=== PATIENT | male | born 1980 | race African-American/Black ===

== ENCOUNTER 2016-08-04 02:17 | Emergency (ER) | payer OTHER ==
[~2016-08-04] VITALS: Ht 180.3 cm; Wt 79.0 kg
[~2016-08-04 02:17] MED LIST: BENZ1TAB PO; HALO5TAB PO
[2016-08-04 02:22] VITALS: BP 145/63; PULSE 71; RESP 16; TEMP 97.8; O2SAT 100
[2016-08-04 02:49] LABS: AUTOMATED NEUTROPHIL # 5.5 TH/MM3 (1.8-7.7); BASOPHIL # 0.1 TH/MM3 (0-0.2); BASOPHIL % 0.7 % (0.0-2.0); EOSINOPHIL # 0.1 TH/MM3 (0-0.4); EOSINOPHIL % 1.3 % (0.0-4.0); HEMATOCRIT 38.9 % (39.0-51.0); HEMO FLAGS DIFF FINAL; LYMPH % 25.2 % (9.0-44.0); LYMPHOCYTE # 2.2 TH/MM3 (1.0-4.8); MEAN CORPUSCULAR HEMOGLOBIN 26.9 PG (27.0-34.0); MEAN CORPUSCULAR HGB CONC 32.8 % (32.0-36.0); MONO % 9.5 % (0.0-8.0); NEUT % 63.3 % (16.0-70.0); PLATELET COUNT 160 TH/MM3 (150-450); RED BLOOD COUNT 4.74 MIL/MM3 (4.50-5.90); WHITE BLOOD COUNT 8.7 TH/MM3 (4.0-11.0)
[2016-08-04 03:00] LABS: AMPHETAMINE, URINE NEG (NEG); BARBITURATES, URINE NEG (NEG); COCAINE, URINE NEG (NEG)
[2016-08-04 03:05] LABS: ALT (GPT) 21 U/L (12-78); ANION GAP 5 MEQ/L (5-15); AST (GOT) 15 U/L (15-37); BICARBONATE 31.1 MEQ/L (21.0-32.0); BLOOD UREA NITROGEN 13 MG/DL (7-18); CHLORIDE 105 MEQ/L (98-107); GLOMERULAR FILTRATION RATE 103 ML/MIN (>89); POTASSIUM 3.8 MEQ/L (3.5-5.1); SODIUM (NA) 141 MEQ/L (136-145)
[2016-08-04 03:07] LABS: ALKALINE PHOSPHATASE 75 U/L (45-117); TOTAL BILIRUBIN ADULT 0.7 MG/DL (0.2-1.0)
--- NOTE | 2016-08-04 03:48 | PD ---
HPI Chief Complaint: Medical Clearance Time Seen by Provider: 02:29 Travel History International Travel<30 days: No Contact w/Intl Traveler<30days: No Traveled to known affect area: No History of Present Illness HPI This is a 36-year-old male who presents to the emergency department with a history of schizophrenia who reports that he was using drugs earlier in the or making him see things. He says he feels a lot better now. He has no complaints and he is not having any thoughts of hurting himself or others. He doesn't paperwork with him from [facility] dated yesterday with a prescription for Haldol and benztropine that he hasn't filled yet. He says he just wants to sleep. He has no medical complaints. PFSH Past Medical History Bipolar Disorder: Yes Anxiety: Yes Depression: Yes Chemotherapy: No Diabetes: No Diminished Hearing: No Headaches: No Heparin Induced Thrombocytopen: No Psychiatric: Yes Immunizations Current: Yes Radiation Therapy: No Schizophrenia: Yes Seizures: No Sickle Cell Disease: Yes (TRAIT) Thyroid Disease: No Influenza Vaccination: No Past Surgical History Other Surgery: No Social History Alcohol Use: Yes Tobacco Use: Yes Substance Use: Yes (CRACK) Allergies-Medications (Allergen,Severity, Reaction): Coded Allergies: No Known Allergies (Unverified , 08/04/16) Reported Meds & Prescriptions Reported Meds & Active Scripts Active Benztropine (Benztropine Mesylate) 1 Mg Tab 1 Mg PO Q12HR 10 Days Haloperidol 5 Mg Tab 7.5 Mg PO BID 10 Days Review of Systems Except as stated in HPI: all other systems reviewed are Neg Physical Exam Narrative GENERAL:Well appearing, no acute distress SKIN: Warm and dry. HEAD: Atraumatic. Normocephalic. EYES: Pupils equal and round. Conjunctival injection. ENT: Moist mucous membranes NECK: Trachea midline. CARDIOVASCULAR: Regular rate and rhythm. No murmur appreciated. RESPIRATORY: Clear to auscultation. Breath sounds equal bilaterally. GASTROINTESTINAL: Abdomen soft, non-tender, nondistended. MUSCULOSKELETAL: No obvious deformities. NEUROLOGICAL: Awake and alert. No obvious cranial nerve deficits. Moving all extremities. PSYCHIATRIC: Appropriate mood and affect; insight and judgment normal. Data Data Last Documented VS Vital Signs Date Time Temp Pulse Resp B/P Pulse Ox O2 Delivery O2 Flow Rate FiO2 08/04/16 02:22 97.8 71 16 145/63 100 Room Air Orders Complete Blood Count With Diff (08/04/16 02:29) Comprehensive Metabolic Panel (08/04/16 02:29) Alcohol (Ethanol) (08/04/16 02:29) Drug Screen, Random Urine (08/04/16 02:29) Labs Laboratory Tests Test 08/04/16 02:30 White Blood Count 8.7 TH/MM3 Red Blood Count 4.74 MIL/MM3 Hemoglobin 12.8 GM/DL Hematocrit 38.9 % Mean Corpuscular Volume 82.0 FL Mean Corpuscular Hemoglobin 26.9 PG Mean Corpuscular Hemoglobin 32.8 % Concent Red Cell Distribution Width 12.0 % Platelet Count 160 TH/MM3 Mean Platelet Volume 10.4 FL Neutrophils (%) (Auto) 63.3 % Lymphocytes (%) (Auto) 25.2 % Monocytes (%) (Auto) 9.5 % Eosinophils (%) (Auto) 1.3 % Basophils (%) (Auto) 0.7 % Neutrophils # (Auto) 5.5 TH/MM3 Lymphocytes # (Auto) 2.2 TH/MM3 Monocytes # (Auto) 0.8 TH/MM3 Eosinophils # (Auto) 0.1 TH/MM3 Basophils # (Auto) 0.1 TH/MM3 CBC Comment DIFF FINAL Differential Comment Sodium Level 141 MEQ/L Potassium Level 3.8 MEQ/L Chloride Level 105 MEQ/L Carbon Dioxide Level 31.1 MEQ/L Anion Gap 5 MEQ/L Blood Urea Nitrogen 13 MG/DL Creatinine 0.99 MG/DL Estimat Glomerular Filtration 103 ML/MIN Rate Random Glucose 92 MG/DL Calcium Level 8.8 MG/DL Total Bilirubin 0.7 MG/DL Aspartate Amino Transf 15 U/L (AST/SGOT) Alanine Aminotransferase 21 U/L (ALT/SGPT) Alkaline Phosphatase 75 U/L Total Protein 7.7 GM/DL Albumin 3.8 GM/DL Urine Opiates Screen NEG Urine Barbiturates Screen NEG Urine Amphetamines Screen NEG Urine Benzodiazepines Screen NEG Urine Cocaine Screen NEG Urine Cannabinoids Screen NEG Ethyl Alcohol Level LESS THAN 3 MG/DL MDM Medical Decision Making Medical Screen Exam Complete: Yes Emergency Medical Condition: Yes Differential Diagnosis Schizophrenia, psychosis, substance intoxication Narrative Course This is a 36-year-old male who presents to the emergency department with a history of schizophrenia. He reports that he use or drug earlier and it made him feel bad. Currently he feels better. He has no thoughts of hurting himself or others. I don't think he meets Nelson act criteria and I can't hold him against his will. Patient will be discharged home in the morning. Diagnosis Primary Impression: Substance abuse Patient Instructions: General Instructions Additional Instructions: Follow up with Luis Carlos Lundberg in regards to psychiatric or substance related issues at: [address] [place] [address] Med/Other Pt SpecificInfo: No Change to Meds Disposition: 01 DISCHARGE HOME Condition: Stable Quyen York MD Aug 04, 2016 03:48
== END 2016-08-04 06:23 | disposition home or self-care (01) ==
LOC: NEPE 02:17
DX: F14.20 Cocaine dependence, uncomplicated (principal); F20.9 Schizophrenia, unspecified; F41.8 Other specified anxiety disorders; F31.9 Bipolar disorder, unspecified
CPT/HCPCS: 80053; 80307; 80320; 85025; 99284

== ENCOUNTER 2017-01-19 08:01 | Inpatient (IN) | payer OTHER ==
[2017-01-19 08:06] VITALS: BP 136/92; PULSE 93; RESP 16; TEMP 98.4; O2SAT 96
--- NOTE | 2017-01-19 08:19 | PD ---
HPI Chief Complaint: Psychiatric Symptoms Time Seen by Provider: 08:14 Travel History International Travel<30 days: No Contact w/Intl Traveler<30days: No Traveled to known affect area: No History of Present Illness HPI 36yo M with PMH of paranoid schizophrenia and polysubstance abuse presents to the ED under Nelson Act because he was observed running down the middle of [facility]. He stated he was being chased by unknown subjects. He states he has not taken his haldol medication. Placed under Nelson Act due to his erratic behavior. Pt denies any chest pain, sob, n/v, abdominal pain, focal weakness or numbness. Pt admits to drug use today. Denies any suicidal or homicidal ideation. Pt has been here multiple times for this and was admitted to inpatient psych in 2016. PFSH Past Medical History Bipolar Disorder: Yes Anxiety: Yes Depression: Yes Chemotherapy: No Diabetes: No Diminished Hearing: No Headaches: No Heparin Induced Thrombocytopen: No Psychiatric: Yes Immunizations Current: Yes Radiation Therapy: No Schizophrenia: Yes Seizures: No Sickle Cell Disease: Yes (TRAIT) Thyroid Disease: No Past Surgical History Other Surgery: No Social History Alcohol Use: Yes Tobacco Use: Yes Substance Use: Yes (CRACK) Allergies-Medications (Allergen,Severity, Reaction): Coded Allergies: No Known Allergies (Unverified , 08/04/16) Reported Meds & Prescriptions Reported Meds & Active Scripts Active No Active Prescriptions or Reported Medications Review of Systems Except as stated in HPI: all other systems reviewed are Neg Physical Exam Narrative GENERAL: 36yo M not in distress. SKIN: Focused skin assessment warm/dry. HEAD: Atraumatic. Normocephalic. EYES: Pupils equal and round and reactive at 5mm bilaterally. No scleral icterus. No injection or drainage. ENT: No nasal bleeding or discharge. Mucous membranes pink and moist. NECK: Trachea midline. No JVD. CARDIOVASCULAR: Regular rate and rhythm. No murmur appreciated. RESPIRATORY: No accessory muscle use. Clear to auscultation. Breath sounds equal bilaterally. GASTROINTESTINAL: Abdomen soft, non-tender, nondistended. No rebound tenderness or guarding. MUSCULOSKELETAL: No obvious deformities. No clubbing. No cyanosis. No edema. NEUROLOGICAL: Awake and alert. No obvious cranial nerve deficits. Motor grossly within normal limits. Normal speech. PSYCHIATRIC: Inappropriate mood and affect; poor insight and judgment. Data Data Last Documented VS Vital Signs Date Time Temp Pulse Resp B/P Pulse Ox O2 Delivery O2 Flow Rate FiO2 01/20/17 10:00 53 18 114/75 Room Air 01/19/17 12:43 99 01/19/17 08:06 98.4 Orders Complete Blood Count With Diff (01/19/17 08:07) Comprehensive Metabolic Panel (01/19/17 08:07) Psych Screen (01/19/17 08:07) Drug Screen, Random Urine (01/19/17 08:07) Alcohol (Ethanol) (01/19/17 08:07) Sodium Chlor 0.9% 1000 Ml Inj (Ns 1000 M (01/19/17 10:15) Potassium Chloride (Kcl) (01/19/17 10:15) Diet Regular Basic (01/19/17 Lunch) Diet Regular Basic (01/19/17 Dinner) Haloperidol Inj (Haldol Inj) (01/19/17 18:00) Diphenhydramine Inj (Benadryl Inj) (01/19/17 18:00) Diet Regular Basic (01/20/17 Breakfast) Diet Regular Basic (01/20/17 Lunch) Labs Laboratory Tests Test 01/19/17 01/19/17 08:25 12:40 White Blood Count 11.3 TH/MM3 Red Blood Count 4.33 MIL/MM3 Hemoglobin 11.9 GM/DL Hematocrit 35.6 % Mean Corpuscular Volume 82.2 FL Mean Corpuscular Hemoglobin 27.4 PG Mean Corpuscular Hemoglobin 33.4 % Concent Red Cell Distribution Width 12.2 % Platelet Count 157 TH/MM3 Mean Platelet Volume 11.4 FL Neutrophils (%) (Auto) 81.0 % Lymphocytes (%) (Auto) 10.9 % Monocytes (%) (Auto) 7.5 % Eosinophils (%) (Auto) 0.4 % Basophils (%) (Auto) 0.2 % Neutrophils # (Auto) 9.2 TH/MM3 Lymphocytes # (Auto) 1.2 TH/MM3 Monocytes # (Auto) 0.9 TH/MM3 Eosinophils # (Auto) 0.0 TH/MM3 Basophils # (Auto) 0.0 TH/MM3 CBC Comment DIFF FINAL Differential Comment Sodium Level 137 MEQ/L Potassium Level 3.2 MEQ/L Chloride Level 105 MEQ/L Carbon Dioxide Level 22.9 MEQ/L Anion Gap 9 MEQ/L Blood Urea Nitrogen 20 MG/DL Creatinine 1.51 MG/DL Estimat Glomerular Filtration 63 ML/MIN Rate Random Glucose 100 MG/DL Calcium Level 9.3 MG/DL Total Bilirubin 2.1 MG/DL Aspartate Amino Transf 48 U/L (AST/SGOT) Alanine Aminotransferase 38 U/L (ALT/SGPT) Alkaline Phosphatase 84 U/L Total Protein 8.4 GM/DL Albumin 4.3 GM/DL Ethyl Alcohol Level 4 MG/DL Urine Opiates Screen NEG Urine Barbiturates Screen NEG Urine Amphetamines Screen NEG Urine Benzodiazepines Screen NEG Urine Cocaine Screen POS Urine Cannabinoids Screen NEG MDM Medical Decision Making Medical Screen Exam Complete: Yes Emergency Medical Condition: Yes Differential Diagnosis Polysubstance abuse vs. paranoid schizophrenia vs. psychosis Narrative Course 36yo M with history of polysubstance abuse and paranoid schizophrenia brought in for bizarre behavior. Pt does appear bizarre and admits to drug use. Labs reviewed, H/H low at 11.9/35.6 but around baseline. BUN/creatinine at 20/1.51, mildly increased from baseline. Pt tolerating PO and given water to hydrate. Bilirubin is elevated at 2.1, but pt has no abdominal pain. K: 3.2, will replaced orally. Blood alcohol 4. Urine drug screen is pending. Pt is medically clear for psych evaluation. Pt has been masturbating in the ED and instructed to stop. Awaiting psych evaluation. Diagnosis Primary Impression: Paranoid schizophrenia Scripts No Active Prescriptions or Reported Meds Lorelei Kerr DO Jan 19, 2017 08:19
[2017-01-19 08:47] LABS: AUTOMATED NEUTROPHIL # 9.2 TH/MM3 (1.8-7.7); BASOPHIL % 0.2 % (0.0-2.0); EOSINOPHIL % 0.4 % (0.0-4.0); HEMATOCRIT 35.6 % (39.0-51.0); HEMO FLAGS DIFF FINAL; LYMPH % 10.9 % (9.0-44.0); LYMPHOCYTE # 1.2 TH/MM3 (1.0-4.8); MEAN CELL VOLUME 82.2 FL (80.0-100.0); MEAN CORPUSCULAR HEMOGLOBIN 27.4 PG (27.0-34.0); MEAN CORPUSCULAR HGB CONC 33.4 % (32.0-36.0); MONO % 7.5 % (0.0-8.0); PLATELET COUNT 157 TH/MM3 (150-450); RED BLOOD COUNT 4.33 MIL/MM3 (4.50-5.90); RED CELL DISTRIBUTION WIDTH 12.2 % (11.6-17.2); WHITE BLOOD COUNT 11.3 TH/MM3 (4.0-11.0)
[2017-01-19 09:03] LABS: ALT (GPT) 38 U/L (12-78); ANION GAP 9 MEQ/L (5-15); AST (GOT) 48 U/L (15-37); BICARBONATE 22.9 MEQ/L (21.0-32.0); BLOOD UREA NITROGEN 20 MG/DL (7-18); CHLORIDE 105 MEQ/L (98-107); GLOMERULAR FILTRATION RATE 63 ML/MIN (>89); POTASSIUM 3.2 MEQ/L (3.5-5.1); SODIUM (NA) 137 MEQ/L (136-145)
[2017-01-19 09:06] LABS: ALKALINE PHOSPHATASE 84 U/L (45-117); TOTAL BILIRUBIN ADULT 2.1 MG/DL (0.2-1.0)
[2017-01-19] MEDS ORDERED: POTASSIUM CHLORIDE 20 MEQ CONTROLLED RELEASE TAB PO ONE (10:15)
[2017-01-19] MEDS ORDERED: SODIUM CHLOR 0.9% 1000 ML INJ 1,000 ML IV ONE (10:15)
[2017-01-19 12:43] VITALS: BP 124/74; PULSE 61; RESP 18; O2SAT 99
[2017-01-19 13:08] LABS: AMPHETAMINE, URINE NEG (NEG); BARBITURATES, URINE NEG (NEG); COCAINE, URINE POS (NEG)
[2017-01-19] MEDS ORDERED: HALOPERIDOL LACTATE 5 MG/ML AMP IM ONE (18:00)
[2017-01-19] MEDS ORDERED: diphenhydrAMINE HCL 50 MG/ML VIAL IM PRN (18:00)
[2017-01-20 02:21] VITALS: RESP 18
[2017-01-20 06:23] VITALS: RESP 18
[2017-01-20 10:00] VITALS: BP 114/75; PULSE 53; RESP 18
[2017-01-20] MEDS ORDERED: LORazepam 1 MG TAB PO PRN (11:45)
[2017-01-20] MEDS ORDERED: MAGNESIUM HYDROXIDE SUSP 30 ML CUP PO PRN (11:45)
[2017-01-20] MEDS ORDERED: ALUMINUM/MAGNESIUM/SIMETH 30 ML CUP PO PRN (11:45)
[2017-01-20] MEDS ORDERED: diphenhydrAMINE HCL 50 MG CAP PO PRN (11:45)
[2017-01-20] MEDS ORDERED: ACETAMINOPHEN 325 MG TAB PO PRN (11:45)
[2017-01-20] MEDS ORDERED: LORazepam 2 MG/ML VIAL IM PRN (11:45)
[2017-01-20 11:49] VITALS: BP 114/75; PULSE 53; RESP 18
--- NOTE | 2017-01-20 12:06 | HHI.HP ---
Provisional Diagnosis Admission Date [place] I. Schizophrenic chronic paranoid type f 20.0, cocaine abuse F 14.10 Certification of Person's Competence To Provide Express and Informed Consent I have personally examined Varinder Angulo , a person being served at [facility] on, Jan 20, 2017 11:50. Express and informed consent means consent voluntarily given in writing, by a competent person, after sufficient explanation and disclosure of the subject matter involved to enable the person to make a knowing and willful decision without any element of force, fraud, deceit, duress, or other form of constraint or coercion. This person is 18 years of age or older, is not now known to be incompetent to consent to treatment with a guardian advocate, and does not have a health care surrogate or proxy currently making medical treatment decisions. I have found this person to be one of the following: [] Competent to provide express and informed consent, as defined above, for voluntary admission to this facility and is competent to provide express and informed consent for treatment. He/she has the consistent capacity to make well reasoned, willful, and knowing decisions concerning his or her medical or mental health treatment. The person fully and consistently understands the purpose of the admission for examination/placement and is fully capable of personally exercising all rights assured [place] [] Incompetent to provide express and informed consent to voluntary admission, and this is incompetent to provide express and informed consent to treatment. The person must be transferred to involuntary status and a petition for a guardian advocate filed with the Circuit Court. [xxx] Refusing to provide express and informed consent to voluntary admission but is competent to provide express and informed consent for treatment. The person must be discharged or transferred to involuntary status. Form shall be completed within 24 hours of a person's arrival at the receiving facility and filed in the clinical record of each person: 1. Admitted on a voluntary basis 2. Permitted to provide express and informed consent to his/her own treatment 3. Allowed to transfer from involuntary to voluntary status 4. Prior to permitting a person to consent to his or her own treatment after having been previously found incompetent to consent to treatment. History of Present Illness Capacity: Lacks Capacity (patient lacks capacity to sign for his admission, patient has capacity sign for medication) HPI Patient is a 36-year-old Afro-Vietnamese male who comes here under Nelson act by the [place] [employer] dated 01/19/17 at 7:45 AM that document reviewed essentially states that Kev was observed running down the middle of [facility]. Upon contact he stated he was being chased by unknown subjects. No persons were chasing/following him. Further investigation revealed that Kev suffers from schizophrenia and bipolar disorder. Kev advised has not taken his "alcohol" medication. Was placed under Nelson act due to his erratic behavior. Patient seen screened in the ED urine toxicology positive for cocaine. Of interest patient is well known to us from multiple prior contacts. Was noted to have cocaine in his urine toxicology drawn in 2014. At the present time patient laying quietly in his room on J pod nurse Thang present throughout session. Patient initially was somewhat resistant to speaking with me. It appears she did recognize me from prior contact. He was guarded irritable and somewhat paranoid. Though he did acknowledge running down the street beside his getting away from "flies". It appears to be a visual component to this though he is vague about any auditory component to this. He denies using cocaine. It appears she does not remember giving a urine specimen yesterday. Also states he just got out of custodial than the past few weeks for some type of drug related charges. He acknowledges that when he does not take his medication his head gets kind of fuzzy and confused. He does denies suicidality at the present time is somewhat confusing and labile when discussing this. In any event at the present time patient does meet criteria for involuntary psychiatric hospitalization under the Nelson act. I'll do first opinion request second opinion. I feel he does have capacity sign for medications at this time. Patient will be admitted 2700 unit we'll restart his Haldol at 10 mg twice a day we'll allow when necessary Ativan at the present time also. Review of the EMR shows patient in the past had been on Haldol Decanoate will consider that this one to 2 days Review of Systems Constitutional: DENIES: Diaphoretic episodes, Fatigue, Fever, Weight gain, Weight loss, Chills, Dizziness, Change in appetite, Night Sweats Endocrine: DENIES: Heat/cold intolerance, Polydipsia, Polyuria, Polyphagia Eyes: DENIES: Blurred vision, Diplopia, Eye inflammation, Eye pain, Vision loss , Photosensitivity, Double Vision Ears, nose, mouth, throat: DENIES: Tinnitus, Hearing loss, Vertigo, Nasal discharge, Oral lesions, Throat pain, Hoarseness, Ear Pain, Running Nose, Epistaxis, Sinus Pain, Toothache, Odynophagia Respiratory: DENIES: Apneas, Cough, Snoring, Wheezing, Hemoptysis, Sputum production, Shortness of breath Gastrointestinal: DENIES: Abdominal pain, Black stools, Bloody stools, Constipation, Diarrhea, Nausea, Vomiting, Difficulty Swallowing, Anorexia Genitourinary: DENIES: Sexual dysfunction, Urinary frequency, Urinary incontinence, Urgency, Hematuria, Dysuria, Nocturia, Penile Discharge, Testicular Pain, Testicular Swelling Musculoskeletal: DENIES: Joint pain, Muscle aches, Stiffness, Joint Swelling, Back pain, Neck pain Integumentary: DENIES: Abnormal pigmentation, Nail changes, Pruritus, Rash Hematologic/lymphatic: DENIES: Bruising, Lymphadenopathy Immunologic/allergic: DENIES: Eczema, Urticaria Neurologic: DENIES: Abnormal gait, Headache, Localized weakness, Paresthesias, Seizures, Speech Problems, Tremor, Poor Balance Psychiatric: COMPLAINS OF: Hallucinations, Agitation (irritable labile) Past Psych History Psychological trauma history Unable to ascertain due to patient psychosis Violence risk - others (6 mos) Moderate Violence risk - self (6 mos) Low to moderate Substance Abuse History Drugs/Alcohol past 12 months Urine toxicology positive for cocaine Past Family Social History Coded Allergies: No Known Allergies (Unverified , 08/04/16) Past Medical History Medically cleared ED Discontinued Scripts Haloperidol 5 Mg Tab7.5 Mg PO BID 10 Days Ref 2 Prov:Braxton Isaacs MD 05/04/16 Current Medications Medications (Trade) Dose Ordered Sig/Deanna Route Start Time Stop Time Status Last Admin (Benadryl Inj) 50 mg Q6H PRN IM 01/19/17 18:00 01/19/17 18:20 Family History Patient has history mental illness and family of origin Social History Patient recently incarcerated has been staying immotile may or may not be homeless at this time Patient's Strengths (min. 2) Patient verbal able access healthcare Physical Exam Patient medically cleared in ED prescription quietly on his bed in J pod is in no acute distress. Neck is supple, he is in no respiratory distress. No complaints of abdominal pain. He moves all 4 extremities without difficulty. No abnormal motor movements noted. Vital Signs Vital Signs Date Time Temp Pulse Resp B/P Pulse Ox O2 Delivery O2 Flow Rate FiO2 01/20/17 11:49 53 18 114/75 Room Air 01/19/17 12:43 99 01/19/17 08:06 98.4 Mental Status Examination Alert oriented though mildly confusing Afro-Vietnamese male laying on his belly Renetta Louis in J pod, he is guarded irritable and labile with fair eye contact Appearance Somewhat disheveled Speech: Pressured, Rapid, Tangential Orientation: Person, Place Memory: Impaired (describe) Thought Process: Loose Association Thought Content: Paranoid Language Poor Fund of Knowledge Poor Hallucination Type: Auditory (vague), Visual (vague) Attention and Concentration: Other (poor) Suicidal Ideation: No (deny) Previous Suicide Attempts: No Homicidal Ideation: No (denies) Previous Homicide Attempts: No Insight: Poor Judgment: Poor Affect: Other (slight increase range and intensity) Mood: Euthymic, Angry, Oppositional, Irritable Motor Activity: Normal gait Assessment & Plan Problem List: (1) Cocaine abuse ICD Code: F14.10 (2) Paranoid type schizophrenia, chronic state ICD Code: F20.0 Assessment & Plan Estimated LOS: 5-7 days patient meets criteria for involuntary psychiatric hospitalization on the Nelson act. I'll do first opinion request second opinion. Distally feel patient has capacity Saphris medications. We will restart him on Haldol 10 mg twice a day anticipation of Haldol Decanoate within 1-2 days Discharge Planning To be determined Request HC Surrog/Guard Advoc?: No Mario Amaya MD Jan 20, 2017 12:05
[2017-01-20 13:50] VITALS: BP 130/61; PULSE 74; RESP 16; TEMP 98.4; O2SAT 100
[2017-01-20] MEDS: HALOPERIDOL 10 MG TAB PO SCH (22:25)
[2017-01-21 05:38] VITALS: BP 93/52; PULSE 71; RESP 18; TEMP 97.9; O2SAT 97
[2017-01-21] MEDS: HALOPERIDOL 10 MG TAB PO SCH ×2 (08:19→20:36)
--- NOTE | 2017-01-21 12:08 | PD.PSY.CON ---
Provisional Diagnosis Admission Date Jan 20, 2017 at 11:50 [place] I. Schizophrenic chronic paranoid type f 20.0, cocaine abuse F 14.10 History of Present Illness Service Psychiatry Consult Requested By Psychiatry Reason for Consult 2nd Primary Care Physician No Primary Care Physician HPI Pt seen and discussed with staff. Chart reviewed. He is a 36YOAAM who was admitted to [facility] under a BA taken out by [place] [employer] alleging that pt was observed running down the middle of [facility] and told the police that he was being pursued by unknown subjects. Pt was BA due to erractic risky behavior. He has a hx of schizophrenia and is well known to service from prior contacts. Staff report that pt remains significantly internal stimulated and is easily frustrated. He has some disorganized behavior and had to be redirected by RN to keep self appropriately covered. He is suspicious and paranoid of medications but is compliant and denies side effects. He states during interview that he stopped taking psychiatric medications after release from care home and has been increasingly "confused". He denies SI/HI. He is guarded during interview and appears to be actively responding to internal stimuli. He has been isolative to his room for most of the day. Past Family Social History Coded Allergies: No Known Allergies (Unverified , 08/04/16) Discontinued Scripts Haloperidol 5 Mg Tab7.5 Mg PO BID 10 Days Ref 2 Prov:Braxton Isaacs MD 05/04/16 Current Medications Medications (Trade) Dose Ordered Sig/Deanna Route Start Time Stop Time Status Last Admin (Benadryl Inj) 50 mg Q6H PRN IM 01/19/17 18:00 01/19/17 18:20 (Ativan) 1 mg Q6H PRN PO 01/20/17 11:45 01/20/17 15:36 (Ativan Inj) 1 mg Q6H PRN IM 01/20/17 11:45 (Benadryl) 50 mg Q6H PRN PO 01/20/17 11:45 (Tylenol) 650 mg Q4H PRN PO 01/20/17 11:45 (Milk Of Magnesia Liq) 30 ml DAILY PRN PO 01/20/17 11:45 (Mag-Al Plus Susp Liq) 30 ml Q6H PRN PO 01/20/17 11:45 (Haldol) 10 mg BID PO 01/20/17 21:00 01/21/17 08:19 Family History unknown Social History Disabled. Living with a friend. Patient's Strengths (min. 2) Patient verbal able access healthcare Physical Exam see EMR no acute distress Vital Signs Vital Signs Date Time Temp Pulse Resp B/P Pulse Ox O2 Delivery O2 Flow Rate FiO2 01/21/17 05:38 97.9 71 18 93/52 97 01/20/17 11:49 Room Air Mental Status Examination Speech: Tangential Orientation: Person, Place Memory: Impaired (describe) Thought Process: Loose Association Thought Content: Paranoid Hallucination Type: Auditory Attention and Concentration: Other (poor) Suicidal Ideation: No Previous Suicide Attempts: No Homicidal Ideation: No Previous Homicide Attempts: No Insight: Poor Judgment: Poor Affect if Inappropriate: Flat Mood: Irritable Motor Activity: Normal gait Assessment & Plan Problem List: (1) Paranoid type schizophrenia, chronic state ICD Code: F20.0 (2) Cocaine abuse ICD Code: F14.10 Assessment & Plan I agree that pt meets BA criteria. Continue current tx plan. 2nd opinion paperwork completed. Estimated LOS: days Request HC Surrog/Guard Advoc?: Irina Villanueva MD Jan 21, 2017 12:08 Assessment & Plan Problem List: (1) Cocaine abuse ICD Code: F14.10 (2) Paranoid type schizophrenia, chronic state ICD Code: F20.0 Assessment & Plan Estimated LOS: days Request HC Surrog/Guard Advoc?: Irina Villanueva MD Jan 21, 2017 12:08
[2017-01-21 18:17] VITALS: BP 116/62; PULSE 70; RESP 18; TEMP 97.5; O2SAT 100
[2017-01-22 06:11] VITALS: BP 142/79; PULSE 68; RESP 18; TEMP 97.2; O2SAT 98
[2017-01-22] MEDS: HALOPERIDOL 10 MG TAB PO SCH ×2 (08:54→20:56)
--- NOTE | 2017-01-22 11:29 | PD.TTN ---
Present for Treatment Team Treatment Team Staff: Provider (Dr. Amaya), [facility] Therapist [facility] Other Clinician (rec. Laina therapy) Patient Problems 1. Discharge planning 2. Medication compliance 3. Knowledge deficit 4. Lack of coping skills Progress Toward Goals Provider Input: Dr. Amaya requested an update regarding this patient's progress, medication compliance, mental status, and plan for discharge. This is a new patient and Counselor has yet to do an assessment. Psych Therapist Input: Patient is a new patient and counselor will do initial assessment today. [facility] Jan 22, 2017 11:29
--- NOTE | 2017-01-22 11:50 | HHI.PYPN ---
Subjective Remarks Patient seen in day room with nurse Tho and medical student Maddie, chart review, patient compliant medications. Patient continues auditory hallucinations though there is a slight decrease in the intensity and the threatening threatening nature of them. He still shows little insight into this and also into the role that cocaine plays in his mental illness. He has had no difficulty with the oral Haldol. We will now order Haldol Decanoate 100 mg IM every 28 days Review of Systems Except as stated in HPI: all other systems reviewed are Neg Objective Alert: Yes [place]: Person, Place, Date Mood: Anxious (slightly), Calm Affect: Euthymic, Labile (slightly) Memory Intact: Comment (poor) Hallucinations: Auditory Delusions: Yes Delusion Type: Paranoid (somewhat decreased) Suicidal: Ideation (denies) Homicidal: Ideation (denies) Insight/Judgment Poor Vitals/IOs Vital Signs Date Time Temp Pulse Resp B/P Pulse Ox O2 Delivery O2 Flow Rate FiO2 01/22/17 06:11 97.2 68 18 142/79 98 01/20/17 11:49 Room Air Assessment & Plan Problem List: (1) Paranoid type schizophrenia, chronic state ICD Code: F20.0 (2) Cocaine abuse ICD Code: F14.10 Assessment & Plan Estimated LOS: days patient continue psychotic delusional, but somewhat softer. He is been no behavioral problems. For now we'll continue the oral Haldol but also add Haldol decanoate 100 mg IM every 28 days starting tomorrow Justification for Cont. Inpt. This time patient will decompensate if placed in a lower level of care Discharge Planning To be determined Request HC Surrog/Guard Advoc?: No Mario Amaya MD Jan 22, 2017 11:50
[2017-01-22 18:07] VITALS: BP 98/52; PULSE 63; RESP 18; TEMP 97.4; O2SAT 99
[2017-01-23 06:08] VITALS: BP 117/67; PULSE 72; RESP 18; TEMP 97.4; O2SAT 100
[2017-01-23] MEDS ORDERED: HALOPERIDOL DECANOATE 50 MG/ML VIAL IM SCH (08:00)
[2017-01-23] MEDS: HALOPERIDOL 10 MG TAB PO SCH ×2 (08:48→20:48)
--- NOTE | 2017-01-23 12:49 | HHI.PYPN ---
Subjective Remarks Patient seen today in his room with medical student Es, chart review, patient compliant medication. Patient did receive his Haldol Decanoate injection of this a.m. without problems. Patient continues somewhat irritable continues to verify vague auditory hallucinations. Is been no significant behavioral problems. For now continue treatment Review of Systems Except as stated in HPI: all other systems reviewed are Neg Objective Alert: Yes [place]: Person, Place, Date Mood: Anxious (slightly), Calm Affect: Euthymic, Labile (slightly) Memory Intact: Comment (poor) Hallucinations: Auditory Delusions: Yes Delusion Type: Paranoid (somewhat decreased) Suicidal: Ideation (denies) Homicidal: Ideation (denies) Insight/Judgment Very poor Vitals/IOs Vital Signs Date Time Temp Pulse Resp B/P Pulse Ox O2 Delivery O2 Flow Rate FiO2 01/23/17 06:08 97.4 72 18 117/67 100 01/20/17 11:49 Room Air Assessment & Plan Problem List: (1) Paranoid type schizophrenia, chronic state ICD Code: F20.0 (2) Cocaine abuse ICD Code: F14.10 Assessment & Plan Estimated LOS: days patient continue psychotic auditory hallucinations, with this time his behavior is no problem Justification for Cont. Inpt. At this time patient decompensate the placed a lower level of care Discharge Planning To be determined Request HC Surrog/Guard Advoc?: No Mario Amaya MD Jan 23, 2017 12:49
[2017-01-23 18:07] VITALS: BP 99/67; PULSE 77; RESP 19; TEMP 98.2; O2SAT 99
[2017-01-24 06:05] VITALS: BP 133/89; PULSE 68; RESP 18; TEMP 97.6; O2SAT 98
[2017-01-24] MEDS: HALOPERIDOL 10 MG TAB PO SCH ×2 (09:42→21:12)
--- NOTE | 2017-01-24 15:18 | HHI.PYPN ---
Subjective Remarks Patient seen in his room with nurse Mayte, chart review, patient compliant medications. While patient is to isolate somewhat he is calmer more redirectable showing no significant behavioral problems. He now denies voices. Distally feel patient is able to sign voluntary will lift Nelson act allow her sign voluntary. For now continue treatment Review of Systems Except as stated in HPI: all other systems reviewed are Neg Objective Alert: Yes [place]: Person, Place, Date Mood: Anxious (slightly), Calm Affect: Euthymic, Labile (slightly) Memory Intact: Comment (poor) Hallucinations: Auditory Delusions: Yes Delusion Type: Paranoid (somewhat decreased) Suicidal: Ideation (denies) Homicidal: Ideation (denies) Insight/Judgment Very poor Vitals/IOs Vital Signs Date Time Temp Pulse Resp B/P Pulse Ox O2 Delivery O2 Flow Rate FiO2 01/24/17 06:05 97.6 68 18 133/89 98 01/20/17 11:49 Room Air Assessment & Plan Problem List: (1) Paranoid type schizophrenia, chronic state ICD Code: F20.0 (2) Cocaine abuse ICD Code: F14.10 Assessment & Plan Estimated LOS: days patient continue psychotic but improving, compliant medications, from I'll continue treatment Justification for Cont. Inpt. At this time patient will decompensate if placed in a lower level of care Discharge Planning To be determined Request HC Surrog/Guard Advoc?: No Mario Amaya MD Jan 24, 2017 15:18
[2017-01-24 17:35] VITALS: BP 103/64; PULSE 84; RESP 19; TEMP 98.1; O2SAT 99
[2017-01-25 05:26] VITALS: BP 111/70; PULSE 84; RESP 18; TEMP 97.6; O2SAT 95
[2017-01-25] MEDS: HALOPERIDOL 10 MG TAB PO SCH ×2 (07:52→12:00)
--- NOTE | 2017-01-25 14:43 | HHI.PYPN ---
Subjective Remarks Patient seen in the day room with medical student Maddie and nurse Michelle. Patient alert oriented calm cooperative smiling same the voices continue to disappear. He now denies suicidality. He continues somewhat vague about where he'll be living when ago. For now continue treatment Review of Systems Except as stated in HPI: all other systems reviewed are Neg Objective Alert: Yes [place]: Person, Place, Date Mood: Anxious (slightly), Calm Affect: Euthymic, Labile (slightly) Memory Intact: Comment (poor) Hallucinations: Auditory Delusions: Yes Delusion Type: Paranoid (somewhat decreased) Suicidal: Ideation (denies) Homicidal: Ideation (denies) Insight/Judgment poor Vitals/IOs Vital Signs Date Time Temp Pulse Resp B/P Pulse Ox O2 Delivery O2 Flow Rate FiO2 01/25/17 05:26 97.6 84 18 111/70 95 Assessment & Plan Problem List: (1) Paranoid type schizophrenia, chronic state ICD Code: F20.0 (2) Cocaine abuse ICD Code: F14.10 Assessment & Plan Estimated LOS: days patient continues psychotic but it is lifting. For now continue treatment Justification for Cont. Inpt. At this time patient would decompensate the placed in a lower level of care Discharge Planning To be determined Request HC Surrog/Guard Advoc?: No Mario Amaya MD Jan 25, 2017 14:43
[2017-01-25 17:39] VITALS: BP 134/76; PULSE 86; RESP 19; TEMP 97.8
[2017-01-26 05:56] VITALS: BP 93/50; PULSE 70; RESP 18; TEMP 97.5; O2SAT 98
[2017-01-26] MEDS: HALOPERIDOL 10 MG TAB PO SCH ×2 (08:21→20:42)
--- NOTE | 2017-01-26 14:33 | HHI.PYPN ---
Subjective Remarks Patient seen in his room with nurse Cristina, chart review, patient compliant medications. No stating of the voices are just about gone calmly continues denies suicidality at this time. For now continue treatment no change Review of Systems Except as stated in HPI: all other systems reviewed are Neg Objective Alert: Yes [place]: Person, Place, Date Mood: Anxious (slightly), Calm Affect: Euthymic, Labile (slightly) Memory Intact: Comment (poor) Hallucinations: Auditory Delusions: Yes Delusion Type: Paranoid (somewhat decreased) Suicidal: Ideation (denies) Homicidal: Ideation (denies) Insight/Judgment Poor Vitals/IOs Vital Signs Date Time Temp Pulse Resp B/P Pulse Ox O2 Delivery O2 Flow Rate FiO2 01/26/17 05:56 97.5 70 18 93/50 98 Assessment & Plan Problem List: (1) Paranoid type schizophrenia, chronic state ICD Code: F20.0 (2) Cocaine abuse ICD Code: F14.10 Assessment & Plan Estimated LOS: days patient continues psychotic though he is improving, compliant medications, no behavioral issues. For now continue treatment Justification for Cont. Inpt. At this time patient will decompensate if placed in a lower level of care Discharge Planning To be determined Request HC Surrog/Guard Advoc?: No Mario Amaya MD Jan 26, 2017 14:33
[2017-01-26 18:15] VITALS: BP 140/80; PULSE 85; RESP 18; TEMP 97.4; O2SAT 99
[2017-01-26] MEDS ORDERED: diphenhydrAMINE HCL 50 MG/ML VIAL IM ONE (18:15)
[2017-01-27 05:42] VITALS: BP 101/54; PULSE 69; RESP 18; TEMP 98; O2SAT 98
[2017-01-27] MEDS: HALOPERIDOL 10 MG TAB PO SCH (08:15)
--- NOTE | 2017-01-27 17:14 | HHI.PYPN ---
Subjective Remarks Patient was seen and case discussed with nursing. Patient had akathisia yesterday and received Benadryl. Today, nursing noticed akathisia this morning and during the interview it is not clear. He has occasional movements of his elbows the patient says he is not concerned about and do away. Complaining of right knee pain but when he finds out he cannot take Lortab he refuses further conversation. Right knee did look mildly swollen. No TD or dystonia Objective Alert: Yes [place]: Person, Place, Date Mood: Anxious (slightly), Calm Affect: Euthymic, Labile (slightly) Memory Intact: Comment (poor) Hallucinations: Auditory Delusions: Yes Delusion Type: Paranoid (somewhat decreased) Suicidal: Ideation (denies) Homicidal: Ideation (denies) Insight/Judgment Poor Vitals/IOs Vital Signs Date Time Temp Pulse Resp B/P Pulse Ox O2 Delivery O2 Flow Rate FiO2 01/27/17 05:42 98.0 69 18 101/54 98 Assessment & Plan Problem List: (1) Paranoid type schizophrenia, chronic state ICD Code: F20.0 (2) Cocaine abuse ICD Code: F14.10 Assessment & Plan Medical consult for right knee pain/swelling. Given recent Haldol Decanoate injection lower by mouth Haldol to 7.5 mg by mouth twice a day. Add Cogentin 1 mg by mouth twice a day Justification for Cont. Inpt. Patient will decompensate in a less restrictive setting Request HC Surrog/Guard Advoc?: No Bradley Arce DO Jan 27, 2017 17:14
[2017-01-27 17:43] VITALS: BP 133/59; PULSE 72; RESP 18; TEMP 98.6; O2SAT 97
[2017-01-27] MEDS ORDERED: PILL SPLITTER OTHER PRN (17:45)
[2017-01-27] MEDS: HALOPERIDOL 5 MG TAB PO SCH (20:11)
[2017-01-27] MEDS: BENZTROPINE MESYLATE 1 MG TAB PO SCH (20:11)
--- NOTE | 2017-01-27 21:00 | RADRPT ---
EXAM DATE/TIME: 01/27/2017 20:28 [place] COMPARISON: No previous studies available for comparison. INDICATIONS : Right knee pain and swelling. No prior trauma. MEDICAL HISTORY : None. SURGICAL HISTORY : None. ENCOUNTER: Initial ACUITY: 3 days PAIN SCORE: 5/10 LOCATION: Right knee. FINDINGS: Four view examination of the right knee demonstrates mild osteoarthritis of the right knee. No acute fracture or dislocation. Trace joint fluid. CONCLUSION: 1. Mild osteoarthritis of the right knee. Nura Kapadia MD on January 27, 2017 at 20:54 Board Certified Radiologist. This report was verified electronically.
[2017-01-28] MEDS: HALOPERIDOL 5 MG TAB PO SCH ×2 (09:02→20:58)
[2017-01-28] MEDS: BENZTROPINE MESYLATE 1 MG TAB PO SCH ×2 (09:02→20:58)
[2017-01-28 13:51] LABS: AUTOMATED NEUTROPHIL # 4.3 TH/MM3 (1.8-7.7); BASOPHIL % 0.3 % (0.0-2.0); EOSINOPHIL # 0.1 TH/MM3 (0-0.4); EOSINOPHIL % 1.5 % (0.0-4.0); HEMATOCRIT 35.5 % (39.0-51.0); HEMO FLAGS DIFF FINAL; LYMPH % 22.4 % (9.0-44.0); LYMPHOCYTE # 1.4 TH/MM3 (1.0-4.8); MEAN CELL VOLUME 84.2 FL (80.0-100.0); MEAN CORPUSCULAR HEMOGLOBIN 27.5 PG (27.0-34.0); MEAN CORPUSCULAR HGB CONC 32.7 % (32.0-36.0); MONO % 9.3 % (0.0-8.0); NEUT % 66.5 % (16.0-70.0); PLATELET COUNT 175 TH/MM3 (150-450); RED BLOOD COUNT 4.22 MIL/MM3 (4.50-5.90); RED CELL DISTRIBUTION WIDTH 11.9 % (11.6-17.2); WHITE BLOOD COUNT 6.4 TH/MM3 (4.0-11.0)
[2017-01-28 14:27] LABS: ANION GAP 6 MEQ/L (5-15); BICARBONATE 30.8 MEQ/L (21.0-32.0); BLOOD UREA NITROGEN 14 MG/DL (7-18); CHLORIDE 100 MEQ/L (98-107); GLOMERULAR FILTRATION RATE 114 ML/MIN (>89); MAGNESIUM 2.5 MG/DL (1.5-2.5); SODIUM (NA) 137 MEQ/L (136-145)
[2017-01-28 14:28] LABS: ALT (GPT) 40 U/L (12-78); AST (GOT) 25 U/L (15-37)
[2017-01-28 14:37] LABS: ALKALINE PHOSPHATASE 75 U/L (45-117); FREE T4 0.84 NG/DL (0.76-1.46); TOTAL BILIRUBIN ADULT 0.7 MG/DL (0.2-1.0)
--- NOTE | 2017-01-28 14:37 | HHI.PYPN ---
Subjective Remarks Patient was seen and case discussed with nursing. Patient is perseverant and why he is being moved to another unit. Patient has been exposing himself to others for reports yesterday. And appears preoccupied with another female patient here. Mood is irritable. Otherwise behaving well on the unit. No longer has akathisia. Denies auditory or visual hallucinations. Objective Alert: Yes [place]: Person, Place, Date Mood: Anxious (slightly) Affect: Labile (slightly) Memory Intact: Comment (poor) Hallucinations: Auditory Delusions: Yes Delusion Type: Paranoid (somewhat decreased) Suicidal: Ideation (denies) Homicidal: Ideation (denies) Insight/Judgment Poor Labs Test 01/28/17 13:31 White Blood Count 6.4 TH/MM3 Red Blood Count 4.22 MIL/MM3 Hemoglobin 11.6 GM/DL Hematocrit 35.5 % Mean Corpuscular Volume 84.2 FL Mean Corpuscular Hemoglobin 27.5 PG Mean Corpuscular Hemoglobin 32.7 % Concent Red Cell Distribution Width 11.9 % Platelet Count 175 TH/MM3 Mean Platelet Volume 10.1 FL Neutrophils (%) (Auto) 66.5 % Lymphocytes (%) (Auto) 22.4 % Monocytes (%) (Auto) 9.3 % Eosinophils (%) (Auto) 1.5 % Basophils (%) (Auto) 0.3 % Neutrophils # (Auto) 4.3 TH/MM3 Lymphocytes # (Auto) 1.4 TH/MM3 Monocytes # (Auto) 0.6 TH/MM3 Eosinophils # (Auto) 0.1 TH/MM3 Basophils # (Auto) 0.0 TH/MM3 CBC Comment DIFF FINAL Differential Comment Sodium Level 137 MEQ/L Potassium Level 4.0 MEQ/L Chloride Level 100 MEQ/L Carbon Dioxide Level 30.8 MEQ/L Anion Gap 6 MEQ/L Blood Urea Nitrogen 14 MG/DL Creatinine 0.91 MG/DL Estimat Glomerular Filtration 114 ML/MIN Rate Random Glucose 99 MG/DL Calcium Level 8.8 MG/DL Phosphorus Level 2.7 MG/DL Magnesium Level 2.5 MG/DL Aspartate Amino Transf 25 U/L (AST/SGOT) Alanine Aminotransferase 40 U/L (ALT/SGPT) Albumin 3.6 GM/DL Vitals/IOs Vital Signs Date Time Temp Pulse Resp B/P Pulse Ox O2 Delivery O2 Flow Rate FiO2 01/27/17 17:43 98.6 72 18 133/59 97 Assessment & Plan Problem List: (1) Paranoid type schizophrenia, chronic state ICD Code: F20.0 (2) Cocaine abuse ICD Code: F14.10 Assessment & Plan Continue current treatment plan Justification for Cont. Inpt. Patient would decompensate in a less restrictive setting. Request HC Surrog/Guard Advoc?: No Bradley Arce DO Jan 28, 2017 14:37
--- NOTE | 2017-01-28 16:30 | PD.CONS ---
HPI Service [facility] Hospitalists Consult Requested By Psychiatric services Reason for Consult Medical management Primary Care Physician No Primary Care Physician Diagnoses: History of Present Illness Written by Kay Gudino PA-C acting as scribe for Dr. Velasco on 01/28/17 at 16 :27. This is a 36-year-old male with past medical history significant for schizophrenia, bipolar disorder, depression and sickle cell trait presented to the ED under Nelson act due to erratic behavior which included running down the middle of [address] reportedly, patient had not been taking his Haldol medication. He also admitted to drug use of cocaine. Patient has been admitted to inpatient psychiatric unit and Hospitalist services have been consulted for right knee pain. He states his right knee began to hurt after he was seated in the back with a patrol vehicle with his right knee pressed up against medical. He reports associated swelling. He denies any redness. Denies any fever or chills. He denies any other medical complaints at this time. Denies any chest pain or shortness of breath. Denies any nausea, vomiting, abdominal pain, diarrhea, constipation or urinary complaints. Review of Systems Except as stated in HPI: all other systems reviewed are Neg Past Family Social History Allergies: Coded Allergies: No Known Allergies (Unverified , 08/04/16) Past Medical History Schizophrenia Bipolar Sickle cell trait Depression Past Surgical History Patient denies any previous surgical history Reported Medications No Active Prescriptions or Reported Medications Active Ordered Medications Current Medications Medications (Trade) Dose Ordered Sig/Deanna Route Start Time Stop Time Status Last Admin (Benadryl Inj) 50 mg Q6H PRN IM 01/19/17 18:00 01/19/17 18:20 (Ativan) 1 mg Q6H PRN PO 01/20/17 11:45 01/20/17 15:36 (Ativan Inj) 1 mg Q6H PRN IM 01/20/17 11:45 (Benadryl) 50 mg Q6H PRN PO 01/20/17 11:45 01/27/17 20:11 (Tylenol) 650 mg Q4H PRN PO 01/20/17 11:45 01/25/17 12:00 (Milk Of Magnesia Liq) 30 ml DAILY PRN PO 01/20/17 11:45 (Mag-Al Plus Susp Liq) 30 ml Q6H PRN PO 01/20/17 11:45 (Haldol Decanoate Inj) 100 mg Q28D IM 01/23/17 08:00 01/23/17 10:38 (Haldol) 7.5 mg BID PO 01/27/17 21:00 01/28/17 09:02 (Cogentin) 1 mg Q12HR PO 01/27/17 21:00 01/28/17 09:02 (Pill Splitter) 1 ea UNSCH PRN OTHER 01/27/17 17:45 Family History Mother, schizophrenia Patient denies any family history of diabetes or hypertension Social History Patient admits to tobacco use of 2 packs per day, he began smoking when he was a teenager. He reports alcohol use of one drink per week. Patient admits to snorting cocaine just prior to his admission. Prior to that, he reports using cocaine about 6 months ago. Physical Exam Vital Signs Vital Signs Date Time Temp Pulse Resp B/P Pulse Ox O2 Delivery O2 Flow Rate FiO2 01/27/17 17:43 98.6 72 18 133/59 97 Physical Exam GENERAL: This is a well-nourished, well-developed patient, in no apparent distress. Awake and alert. SKIN: No rashes, ecchymoses or lesions. Cool and dry. HEAD: Atraumatic. Normocephalic. No temporal or scalp tenderness. EYES: Pupils equal round and reactive. Extraocular motions intact. No scleral icterus. No injection or drainage. ENT: Nose without bleeding or purulent drainage. Throat without erythema, tonsillar hypertrophy or exudate. Uvula midline. Airway patent. NECK: Trachea midline. No lymphadenopathy. Supple, nontender, no meningeal signs. CARDIOVASCULAR: Regular rate and rhythm without murmurs, gallops, or rubs. RESPIRATORY: Clear to auscultation. Breath sounds equal bilaterally. No wheezes , rales, or rhonchi. GASTROINTESTINAL: Abdomen soft, non-tender, nondistended. No hepato-splenomegaly , or palpable masses. No guarding. MUSCULOSKELETAL: Extremities without clubbing, cyanosis, or edema. No joint tenderness, effusion, or edema noted, specifically palpation of the right knee is nontender. (+)Small amount of right knee swelling without any associated erythema. No calf tenderness. NEUROLOGICAL: Awake and alert. Able to move all extremities. Normal speech. Appears jittery with constant movement. Laboratory Laboratory Tests Test 01/28/17 13:31 White Blood Count 6.4 Red Blood Count 4.22 Hemoglobin 11.6 Hematocrit 35.5 Mean Corpuscular Volume 84.2 Mean Corpuscular Hemoglobin 27.5 Mean Corpuscular Hemoglobin 32.7 Concent Red Cell Distribution Width 11.9 Platelet Count 175 Mean Platelet Volume 10.1 Neutrophils (%) (Auto) 66.5 Lymphocytes (%) (Auto) 22.4 Monocytes (%) (Auto) 9.3 Eosinophils (%) (Auto) 1.5 Basophils (%) (Auto) 0.3 Neutrophils # (Auto) 4.3 Lymphocytes # (Auto) 1.4 Monocytes # (Auto) 0.6 Eosinophils # (Auto) 0.1 Basophils # (Auto) 0.0 CBC Comment DIFF FINAL Differential Comment Sodium Level 137 Potassium Level 4.0 Chloride Level 100 Carbon Dioxide Level 30.8 Anion Gap 6 Blood Urea Nitrogen 14 Creatinine 0.91 Estimat Glomerular Filtration 114 Rate Random Glucose 99 Calcium Level 8.8 Phosphorus Level 2.7 Magnesium Level 2.5 Total Bilirubin 0.7 Aspartate Amino Transf 25 (AST/SGOT) Alanine Aminotransferase 40 (ALT/SGPT) Alkaline Phosphatase 75 Total Protein 7.2 Albumin 3.6 Free Thyroxine 0.84 Thyroid Stimulating Hormone 1.010 3rd Gen Result Diagram: 01/28/17 1331 01/28/17 1331 Imaging Last Impressions Knee X-Ray 01/27/17 0000 Signed Impressions: Service Date/Time: Friday, January 27, 2017 20:28 - CONCLUSION: 1. Mild osteoarthritis of the right knee. Nura Kapadia MD Assessment and Plan Assessment and Plan 36-year-old male with past medical history significant for schizophrenia, bipolar disorder, depression and sickle cell trait presented to the ED under Nelson act due to erratic behavior which included running down the middle of [address] Patient with complaints of right knee pain and hospitalist service is consulted for management. Schizophrenia Bipolar disorder Depression Management per psychiatric team Right knee pain X-ray, personally reviewed, reveals mild osteoarthritis Ibuprofen as needed Monitor Cocaine use Discussed cessation/counseling DVT prophylaxis Patient is ambulatory, low risk This note was transcribed by SHARLA Duncan I, Dr. Clarisa Velasco personally performed the history, physical exam, and medical decision making; and confirmed the accuracy of the information in the transcribed note. Authenticated by Dr. Clarisa Velasco on 01/28/17 at 16:27. Discussed Condition With Patient, nursing staff Kay Gudino Jan 28, 2017 16:30 Clarisa Velasco MD Jan 28, 2017 18:43
[2017-01-28 16:41] VITALS: BP 127/58; PULSE 68; RESP 18; TEMP 97.4
[2017-01-29 04:52] VITALS: BP 104/63; PULSE 72; RESP 16; TEMP 97.9; O2SAT 98
[2017-01-29] MEDS ORDERED: IBUPROFEN 800 MG TAB PO PRN (09:45)
[2017-01-29] MEDS: HALOPERIDOL 5 MG TAB PO SCH ×2 (10:03→21:16)
[2017-01-29] MEDS: BENZTROPINE MESYLATE 1 MG TAB PO SCH ×2 (10:04→21:16)
--- NOTE | 2017-01-29 10:57 | HHI.PR ---
Subjective Remarks Follow up on patient with right knee pain. Patient seen and examined today. Patient reports some improvement in his right knee. He denies any other medical complaints at this time. He is requesting to be discharged today. He denies any fever or chills. Denies any chest pain or SOB. Denies any N/V or abdominal pain. Objective Vitals Vital Signs Date Time Temp Pulse Resp B/P Pulse Ox O2 Delivery O2 Flow Rate FiO2 01/29/17 04:52 97.9 72 16 104/63 98 01/28/17 16:41 97.4 68 18 127/58 Result Diagram: 01/28/17 1331 01/28/17 1331 Imaging Last Impressions Knee X-Ray 01/27/17 0000 Signed Impressions: Service Date/Time: Friday, January 27, 2017 20:28 - CONCLUSION: 1. Mild osteoarthritis of the right knee. uNra Kapadia MD Objective Remarks GENERAL: This is a well-nourished, well-developed patient, in no apparent distress. Awake and alert. Lying in hospital bed. SKIN: No rashes. Cool and dry. HEAD: Atraumatic. Normocephalic. EYES: Extraocular motions intact. No scleral icterus. No injection or drainage. ENT: Nose without bleeding or purulent drainage. Airway patent. NECK: Trachea midline. CARDIOVASCULAR: Regular rate and rhythm without murmurs, gallops, or rubs. RESPIRATORY: Clear to auscultation. Breath sounds equal bilaterally. No wheezes , rales, or rhonchi. GASTROINTESTINAL: Abdomen soft, non-tender, nondistended. No hepato-splenomegaly , or palpable masses. No guarding. MUSCULOSKELETAL: Extremities without clubbing, cyanosis, or edema. No joint tenderness, effusion, or edema noted, specifically palpation of the right knee is nontender. (+)Small amount of right knee swelling without any associated erythema. No calf tenderness. NEUROLOGICAL: Awake and alert. Able to move all extremities. Normal speech. Appears jittery with constant movement but less than yesterday. Medications and IVs Current Medications Medications (Trade) Dose Ordered Sig/Deanna Route Start Time Stop Time Status Last Admin (Benadryl Inj) 50 mg Q6H PRN IM 01/19/17 18:00 01/19/17 18:20 (Ativan) 1 mg Q6H PRN PO 01/20/17 11:45 01/20/17 15:36 (Ativan Inj) 1 mg Q6H PRN IM 01/20/17 11:45 (Benadryl) 50 mg Q6H PRN PO 01/20/17 11:45 01/27/17 20:11 (Tylenol) 650 mg Q4H PRN PO 01/20/17 11:45 01/25/17 12:00 (Milk Of Magnesia Liq) 30 ml DAILY PRN PO 01/20/17 11:45 (Mag-Al Plus Susp Liq) 30 ml Q6H PRN PO 01/20/17 11:45 (Haldol Decanoate Inj) 100 mg Q28D IM 01/23/17 08:00 01/23/17 10:38 (Haldol) 7.5 mg BID PO 01/27/17 21:00 01/29/17 10:03 (Cogentin) 1 mg Q12HR PO 01/27/17 21:00 01/29/17 10:04 (Pill Splitter) 1 ea UNSCH PRN OTHER 01/27/17 17:45 (Motrin) 800 mg Q6H PRN PO 01/29/17 09:45 A/P Assessment and Plan 36-year-old male with past medical history significant for schizophrenia, bipolar disorder, depression and sickle cell trait presented to the ED under Nelson act due to erratic behavior which included running down the middle of [address] Patient with complaints of right knee pain and hospitalist service is consulted for management. Schizophrenia Bipolar disorder Depression Management per psychiatric team Right knee pain Improving X-ray, personally reviewed, reveals mild osteoarthritis Ibuprofen as needed Monitor Cocaine use Discussed cessation/counseling DVT prophylaxis Patient is ambulatory, low risk Discussed with patient and Dr. Velasco Patient appears medically stable from Hospitalist standpoint. Will sign off for now. Please reconsult if needed. Kay Gudino Jan 29, 2017 10:57
--- NOTE | 2017-01-29 12:34 | PD.TTN ---
Present for Treatment Team Treatment Team Staff: Provider (Dr. Amaya), Nurse (Epi Mason, RN), Psych Therapist (Gia Garíca), Occupational Therapist (Laina Sousa, Specalist) Patient Problems 1. Discharge planning 2. Medication compliance 3. Knowledge deficit 4. Lack of coping skills Progress Toward Goals Provider Input: Patient has been compliant with medications and having no behavioral issues on the unit. patient was transfer over to different unit due to his level of functioning. patient is cooperative and calm and denies SI/HI currently. Nurse Input: Patient is selcusive to room and only comes out during meals. patient seems to be responding to internal stimuli. Patient is compliant with medications and denies side effects. Psych Therapist Input: Patient is cooperative and calm and does note to be responding to interntal stimuli. otherwise patient is guarded and seclusive to self. Occupational Therapist Input: Patient attends group activies but tends to isolate to himself. Patient is cooperative and pleasant. Gia Romeo RMI Jan 29, 2017 12:34
--- NOTE | 2017-01-29 15:19 | HHI.PYPN ---
Subjective Remarks Patient seen in his room with nurse Thom parham and medical student Anna. Patient somewhat excited and mildly nervous stating he wished to be discharged today because had "things to do" he states he will be able to live with his mother we are not certain about his mother status either. He is compliant with his medications. Denies suicidality homicidality voices or visions. Review of Systems Except as stated in HPI: all other systems reviewed are Neg Objective Alert: Yes [place]: Person, Place, Date Mood: Anxious (slightly) Affect: Labile (slightly) Memory Intact: Comment (poor) Hallucinations: Auditory Delusions: Yes Delusion Type: Paranoid (somewhat decreased) Suicidal: Ideation (denies) Homicidal: Ideation (denies) Insight/Judgment Poor Vitals/IOs Vital Signs Date Time Temp Pulse Resp B/P Pulse Ox O2 Delivery O2 Flow Rate FiO2 01/29/17 04:52 97.9 72 16 104/63 98 Assessment & Plan Problem List: (1) Paranoid type schizophrenia, chronic state ICD Code: F20.0 (2) Cocaine abuse ICD Code: F14.10 Assessment & Plan Estimated LOS: days patient has shown no significant behavioral problems, is now denying voices or visions. He wishes to be discharged. And has been compliant with his medications. We'll consider discharge tomorrow if his behavior remains good Justification for Cont. Inpt. This time patient will decompensate with placed at a lower level of care Discharge Planning To be determined Request HC Surrog/Guard Advoc?: No Mario Amaya MD Jan 29, 2017 15:18
[2017-01-29 15:28] VITALS: BP 104/57; PULSE 64; RESP 18; TEMP 98; O2SAT 98
[2017-01-29 16:58] LABS: HEMOGLOBIN A1a 0.7 %; HEMOGLOBIN A1b 0.5 %; HEMOGLOBIN Ao 58.1 %; HEMOGLOBIN F 0.6 %; HEMOGLOBIN LA1C 1.1 %
[2017-01-30 06:06] VITALS: BP 92/54; PULSE 74; RESP 16; TEMP 97.8; O2SAT 95
[2017-01-30] MEDS: BENZTROPINE MESYLATE 1 MG TAB PO SCH (09:41)
[2017-01-30] MEDS: HALOPERIDOL 5 MG TAB PO SCH (09:42)
[2017-01-30] MEDS ORDERED: HALD50IN IM (12:24)
[2017-01-30] MEDS ORDERED: HALO5TAB PO (12:24)
[2017-01-30] MEDS ORDERED: Benztropine PO (12:24)
--- NOTE | 2017-01-30 12:36 | HHI.DS ---
Psychiatry Discharge Summary Inpatient Psychiatric care?: Yes Advance Directive: No Reason Not Provided: Pt refused Mental Health AdvanceDirective: No Health Care Proxy: No Admission Admission Date Jan 20, 2017 at 11:50 Admission Diagnosis: (1) Paranoid schizophrenia ICD Code: F20.0 (2) Cocaine abuse ICD Code: F14.10 Brief History Pt seen and discussed with staff. Chart reviewed. He is a 36YOAAM who was admitted to [facility] under a BA taken out by BELINDA LANGE alleging that pt was observed running down the middle of [facility] and told the police that he was being pursued by unknown subjects. Pt was BA due to erractic risky behavior. He has a hx of schizophrenia and is well known to service from prior contacts. Staff report that pt remains significantly internal stimulated and is easily frustrated. He has some disorganized behavior and had to be redirected by RN to keep self appropriately covered. He is suspicious and paranoid of medications but is compliant and denies side effects. He states during interview that he stopped taking psychiatric medications after release from residential and has been increasingly "confused". He denies SI/HI. He is guarded during interview and appears to be actively responding to internal stimuli. He has been isolative to his room for most of the day. Tobacco Use In Past 30 Days: 4 or Less Cigarettes/Day Alcohol Use: 2-3 Times Per Week Hospital Course Patient's initial paranoia auditory hallucinations gradually diminished as he show compliance with his medication. He was also compliant with his Haldol Decanoate injection. He show continued improvement after the injection. He now states the voices are gone, he denies suicidality homicidality. He states is willing to be compliant with his outpatient medication and injections scheduling. And with medication appointments. Also made strong recommendations for absolute abstinence with referral to NA referral Mr. Lundberg act voluntary assessment outpatient substance abuse assessment Results Blood Pressure 92 / 54 Vital Signs Date Time Temp Pulse Resp B/P Pulse Ox O2 Delivery O2 Flow Rate FiO2 01/30/17 06:06 97.8 74 16 92/54 95 Laboratory Tests Test 01/28/17 13:31 Red Blood Count 4.22 MIL/MM3 (4.50-5.90) Hemoglobin 11.6 GM/DL (13.0-17.0) Hematocrit 35.5 % (39.0-51.0) Monocytes (%) (Auto) 9.3 % (0.0-8.0) Laboratory Results Test 01/28/17 13:31 Hemoglobin A1c 4.8 % (4.3-6.0) Summary of Procedures None done Imaging Last Impressions Knee X-Ray 01/27/17 0000 Signed Impressions: Service Date/Time: Friday, January 27, 2017 20:28 - CONCLUSION: 1. Mild osteoarthritis of the right knee. Nura Kapadia MD Pending results at discharge: No Medications # of Antipsychotic meds at D/C: 1 Approp Antipsych med options 1 - Minimum of three failed multiple trials of monotherapy. 2 - Documented plan to taper to monotherapy due to previous use of multiple meds OR cross-taper in progress at D/C. 3 - Documentation of augmentation of Clozapine. 4 - Justification other than those listed in allowable values 1-3, document here : Discharge Discharge Date: Jan 30, 2017 Discharge Diagnosis: (1) Cocaine abuse ICD Code: F14.10 (2) Paranoid type schizophrenia, chronic state Diagnosis: Principal ICD Code: F20.0 Mental Status Exam at Disch Alert oriented Afro-Argentine male, he is normal active to somewhat fidgety, his mood is euthymic to somewhat restricted, with a slight increase in intensity decreased range of his affect. There are no auditory or visual hallucinations. No delusions. Insight and judgment is poor. Cognition grossly intact. Pt Condition on Discharge: Stable Discharge Disposition: Discharge Home Discharge Instructions Diet Instructions: As Tolerated, No Restrictions Activities you can perform: Regular-No Restrictions Scheduled Appointment: Jose Manuel Niño (follow-up SMA medication management, injection treatment next injection due 02/20, refer also to Nathen Lundberg outpatient substance abuse assessment) Discharge Time > 30 minutes Discharge/Advance Care Plan Health Problems: (1) Paranoid type schizophrenia, chronic state (2) Cocaine abuse Goals to promote your health * To prevent worsening of your condition and complications * To maintain your health at the optimal level Directions to meet your goals Take your medications as prescribed Follow your dietary instruction Follow activity as directed Keep your appointments as scheduled Take your immunizations and boosters as scheduled If your symptoms worsen call your PCP, if no PCP go to Urgent Care Center or Emergency Room For 15/01 questions related to your inpatient stay or results of tests pending at discharge, please contact Dr. Mario Amaya at Smoking is Dangerous to Your Health. Avoid second hand smoking Mario Amaya MD Jan 30, 2017 12:35
== END 2017-01-30 15:15 | disposition home or self-care (01) | DRG 885 ==
LOC: NEPE 08:01 → NEDA 01-20 11:50 → H270 01-20 13:40 → H260 01-28 14:05
PROVIDERS: ADMIT Psychiatry & Neurology Psychiatry; ATTEND Psychiatry & Neurology Psychiatry
DX: F20.0 Paranoid schizophrenia (principal); F14.10 Cocaine abuse, uncomplicated; F31.9 Bipolar disorder, unspecified; F41.9 Anxiety disorder, unspecified; D57.3 Sickle-cell trait; Z72.0 Tobacco use; M17.11 Unilateral primary osteoarthritis, right knee
CPT/HCPCS: 73564; 80053; 80307; 83036; 83735; 84100; 84439; 84443; 85025; 96372; J1200; J1630; J1631; Q0163

== ENCOUNTER 2017-11-24 20:24 | Inpatient (IN) | payer OTHER ==
[~2017-11-24 20:24] MED LIST changes: -BENZ1TAB PO; +Benztropine PO; +HALD50IN IM
--- NOTE | 2017-11-24 21:12 | PD ---
HPI Chief Complaint: Psychiatric Symptoms Time Seen by Provider: 21:00 Travel History International Travel<30 days: No Contact w/Intl Traveler<30days: No Traveled to known affect area: No History of Present Illness HPI 37-year-old male that presents to the ED for evaluation of Nelson act. Patient was Nelson acted by police after apparently he was throwing change bystanders at a local facility. Patient was very agitated and has a history of schizophrenia. Patient had to be restrained and brought here for evaluation. He denies any medical issues. He is somewhat bizarre and psychotic on evaluation and is very agitated. He had to be restrained by us for the safety of staff on himself. History is limited limited because patient does appear to be very aggressive and combative as well as psychotic. He does however give me some information when he is able to calm down and tells me that he has an appointment with his doctor on Sunday. Per patient he does take Haldol twice a day. He cannot really tell me if he has been compliant with it however. Has no allergies to medication. PFSH Past Medical History Autoimmune Disease: No Bipolar Disorder: Yes Anxiety: Yes Depression: No Cancer: No Cardiovascular Problems: No Chemotherapy: No Diabetes: No Diminished Hearing: No Endocrine: No Genitourinary: No Headaches: No Heparin Induced Thrombocytopen: No Immune Disorder: No Musculoskeletal: No Neurologic: No Psychiatric: Yes (Chronic, Paranoid Schizophrenia) Reproductive: No Respiratory: No Immunizations Current: Yes Radiation Therapy: No Schizophrenia: Yes Seizures: No Sickle Cell Disease: Yes (TRAIT) Thyroid Disease: No Past Surgical History Other Surgery: No Social History Alcohol Use: Yes Tobacco Use: Yes Substance Use: Yes Allergies-Medications (Allergen,Severity, Reaction): Coded Allergies: No Known Allergies (Unverified , 08/04/16) Reported Meds & Prescriptions Reported Meds & Active Scripts Active Haloperidol 5 Mg Tab 5 Mg PO DIRECTED 1 in a.m. two at bedtime Haldol Decanoate Inj (Haloperidol Decanoate) 50 Mg/Ml Inj 100 Mg IM Q28D Next dose due 02/20/17 [Benztropine] 1 MG Tab 1 Mg PO Q12HR Review of Systems ROS Limitations: Combative, Psychotic Except as stated in HPI: all other systems reviewed are Neg Physical Exam Exam Limitations: Combative, Psychotic Narrative GENERAL: SKIN: Warm and dry. HEAD: Atraumatic. Normocephalic. EYES: Pupils equal and round. No scleral icterus. No injection or drainage. ENT: No nasal bleeding or discharge. Mucous membranes pink and moist. Tongue is midline. No uvula deviation. NECK: Trachea midline. No JVD. CARDIOVASCULAR: Regular rate and rhythm. No murmurs, S3, S4. RESPIRATORY: No accessory muscle use. Clear to auscultation. Breath sounds equal bilaterally. GASTROINTESTINAL: Abdomen soft, non-tender, nondistended. Hepatic and splenic margins not palpable. MUSCULOSKELETAL: Extremities without clubbing, cyanosis, or edema. No obvious deformities. Full range of motion of the upper and lower extremities bilaterally. 2+ pulses bilaterally. NEUROLOGICAL: Awake and alert. No obvious cranial nerve deficits. Motor grossly within normal limits. Five out of 5 muscle strength in the arms and legs. Normal speech. PSYCHIATRIC: Psychotic mood and affect; insight and judgment minimal Data Data Orders Orders Complete Blood Count With Diff (11/24/17 20:30) Comprehensive Metabolic Panel (11/24/17 20:30) Thyroid Stimulating Hormone (11/24/17 20:30) Psych Screen (11/24/17 20:30) Drug Screen, Random Urine (11/24/17 20:30) Alcohol (Ethanol) (11/24/17 20:30) Salicylates (Aspirin) (11/24/17 20:30) Tylenol (Acetaminophen) (11/24/17 20:30) Haloperidol Inj (Haldol Inj) (11/24/17 21:15) Diphenhydramine Inj (Benadryl Inj) (11/24/17 21:15) Lorazepam Inj (Ativan Inj) (11/24/17 21:15) Restraints Violent (11/24/17 21:07) MDM Medical Decision Making Medical Screen Exam Complete: Yes Emergency Medical Condition: Yes Medical Record Reviewed: Yes Differential Diagnosis Depression versus suicidal ideation versus anxiety versus adjustment disorder versus mood disorder versus bipolar disorder versus schizophrenia versus paranoid disorder versus psychosis versus substance abuse versus alcohol abuse versus alcohol induced psychosis versus homicidality addition versus cutting versus personality disorder Narrative Course 37-year-old male the presents to the ED for evaluation of Nelson act. Patient was properly examined and was found to have signs and symptoms consistent appears to be likely psychosis and possible substance use. Patient acts bizarre and when he comes down he appears to answer questions appropriately but he is very combative. He had to be restrained. Given medications. Labs were drawn. Patient will be medically clear pending labs. Mental health screening was discussed with the patient. Diagnosis Primary Impression: Paranoid schizophrenia Robert Vigil Nov 24, 2017 21:12
[2017-11-24] MEDS ORDERED: HALOPERIDOL LACTATE 5 MG/ML AMP IM ONE (21:15)
[2017-11-24] MEDS ORDERED: diphenhydrAMINE HCL 50 MG/ML VIAL IM ONE (21:15)
[2017-11-24] MEDS ORDERED: LORazepam 2 MG/ML VIAL IM ONE (21:15)
[2017-11-24 21:30] VITALS: BP 132/72; PULSE 87; RESP 18; TEMP 98.8; O2SAT 100
[2017-11-24 21:56] LABS: AUTOMATED NEUTROPHIL # 3.9 TH/MM3 (1.8-7.7); BASOPHIL % 0.7 % (0.0-2.0); EOSINOPHIL # 0.3 TH/MM3 (0-0.4); EOSINOPHIL % 4.7 % (0.0-4.0); HEMATOCRIT 35.9 % (39.0-51.0); HEMOGLOBIN 11.7 GM/DL (13.0-17.0); LYMPH % 30.3 % (9.0-44.0); LYMPHOCYTE # 2.1 TH/MM3 (1.0-4.8); MEAN CELL VOLUME 81.3 FL (80.0-100.0); MEAN CORPUSCULAR HEMOGLOBIN 26.4 PG (27.0-34.0); MEAN CORPUSCULAR HGB CONC 32.4 % (32.0-36.0); MONO % 8.1 % (0.0-8.0); MONOCYTE # 0.6 TH/MM3 (0-0.9); NEUT % 56.2 % (16.0-70.0); PLATELET COUNT 177 TH/MM3 (150-450); RED BLOOD COUNT 4.41 MIL/MM3 (4.50-5.90); RED CELL DISTRIBUTION WIDTH 12.5 % (11.6-17.2)
[2017-11-24 22:52] LABS: ACETAMINOPHEN LESS THAN 2.0 MCG/ML (10.0-30.0); ALBUMIN 3.7 GM/DL (3.4-5.0); ALKALINE PHOSPHATASE 81 U/L (45-117); ALT (GPT) 35 U/L (12-78); AST (GOT) 30 U/L (15-37); BICARBONATE 23.8 MEQ/L (21.0-32.0); BLOOD UREA NITROGEN 13 MG/DL (7-18); CALCIUM 8.8 MG/DL (8.5-10.1); CHLORIDE 106 MEQ/L (98-107); CREATININE 1.28 MG/DL (0.60-1.30); GLOMERULAR FILTRATION RATE 76 ML/MIN (>89); GLUCOSE,RANDOM 91 MG/DL (74-106); SODIUM (NA) 141 MEQ/L (136-145); TOTAL BILIRUBIN ADULT 1.2 MG/DL (0.2-1.0); TOTAL PROTEIN 7.7 GM/DL (6.4-8.2)
[2017-11-25 03:09] VITALS: BP 117/60; PULSE 66; RESP 18; TEMP 98.8; O2SAT 96
--- NOTE | 2017-11-25 10:14 | PD ---
History of Present Illness Chief Complaint: Psychiatric Symptoms Time Seen by Provider: 10:14 Travel History International Travel<30 Days: No Contact w/Intl Traveler<30days: No Known affected area: No Legal Status Legal Status: Nelson Act Nelson Act Signed By: Reinier Vargas History of Present Illness: Patient is a 38-year-old -[place] placed under a Nelson act by [facility] [employer]. Nelson act states," Mr. Angulo was observed by patrons [address] [facility] [place] throwing chairs and screaming he wanted to and wanted to hurt someone. While in my presence, Mr. Angulo stated that he was going to be hurt and he was going to get us while violently throwing himself around while sitting on the ground. Mr. Angulo stated that he has life-threatening issues." Patient has a long history of Schizophrenia , bipolar type. He last admission to [facility] was on 01/20/17. He states that he takes Haldol 5mg bid and Cogentin 1mg bid. Patient was uncooperative on arrival and had to be placed in restraints. He was given Haldol 5mg, Ativan 1mg and Benadryl 50 mg on 01/19/18 at 2215. He is currently out of restraints and remains irritable and angry. UDS is positive for cocaine. Medical History of Sickle Cell Trait, poor dentition, and Paranoid Schizophrenia. He completed the 9th grade and is unemployed. He states that he receives some supports from the [facility] [employer] and believes that he is in the [id number] program. He believes that his mother and sister have schizophrenia , but he is not sure of there diagnosis. When asked if he ever started the Haldol Decanote DELGADO that was recommended he could not recall, he can only recall that he takes Haldol by pill two times a day. Chart reviewed and discussed with nurse. She is in a hospital gown in [facility]. Patient is irritable and angry. He is alert to himself. He will not answer questions regarding date time and location. He is a dishevel and malodorous. He is laying on his stomach and covering his ears. He appears internally stimulated. When asked about auditory hallucinations he denies. He also denies visual hallucinations. His gait and posture is normal. Motor activity normal. Attitude is uncooperative and evasive. Speech is low and he is mumbling. Thought process is illogical. Thought association is tangential and circumstantial. Memory is impaired recent memory is intact. Attention concentration is mildly impaired. Patient has poor insight and judgment. Patient denies that he is suicidal homicidal at this time. Patient is at moderate risk for decompensation. Will admit patient for further assessment and treatment. Dx: Paranoid Schizophrenia; Cocaine abuse PFSH Past Medical History Autoimmune Disease: No Bipolar Disorder: Yes Anxiety: Yes Depression: No Cancer: No Cardiovascular Problems: No Chemotherapy: No Diabetes: No Diminished Hearing: No Endocrine: No Genitourinary: No Headaches: No Heparin Induced Thrombocytopen: No Immune Disorder: No Musculoskeletal: No Neurologic: No Psychiatric: Yes (Chronic, Paranoid Schizophrenia) Reproductive: No Respiratory: No Immunizations Current: Yes Radiation Therapy: No Schizophrenia: Yes Seizures: No Sickle Cell Disease: Yes (TRAIT) Thyroid Disease: No Past Surgical History Other Surgery: No Psychiatric History Psychiatric History Patient is under treatment at [facility] for treatment of his schizophrenia. Hx Psychiatric Treatment: Hx of schizophrenia and cocaine abuse. No past suicide attempts. History of Inpatient Treatment: Yes Social History Hx Alcohol Use: Yes Hx Tobacco Use: Yes Hx Substance Use: Yes (cocaine) Substance Use Type: Cocaine Other Substances Used: Pt has a hx of cocaine abuse Hx of Substance Use Treatment: No Allergies-Medications (Allergen,Severity, Reaction): Coded Allergies: No Known Allergies (Unverified , 08/04/16) Reported Meds & Prescriptions Reported Meds & Active Scripts Active Haloperidol 5 Mg Tab 5 Mg PO DIRECTED 1 in a.m. two at bedtime Haldol Decanoate Inj (Haloperidol Decanoate) 50 Mg/Ml Inj 100 Mg IM Q28D Next dose due 02/20/17 [Benztropine] 1 MG Tab 1 Mg PO Q12HR Mental Status Examination Appearance: Disheveled, Malodorous Consciousness: Alert Orientation: Person Motor Activity: Normal gait Speech: Slow, Other (mumbling with low tone) Language: Adequate Fund of Knowledge: Adequate Attention and Concentration: Easily Distracted Memory: Impaired Mood: Angry, Irritable Affect: Sad Thought Process & Associations: Circumstantial, Tangential Thought Content: Hallucinations Hallucination Type: Auditory Delusion Type: None Suicidal Ideation: No Suicidal Plan: No Suicidal Intention: No Homicidal Ideation: No Homicidal Plan: No Homicidal Intention: No Insight: Adequate Judgment: Adequate [facility] Medical Decision Making Medical Record Reviewed: Yes Assessment/Plan Patient is a 37-year-old -E[place]ian male homeless with long-term history of schizophrenia, bipolar type. Presents to the emergency room under a Nelson act due to his violent behavior on [address]. Patient states that he is under care at [facility] and takes Haldol 5 mg twice daily and Cogentin 1 twice daily daily. He is currently paranoid and internally stimulated. He is holding his ears and irritable. He is eating well and suffering from insomnia. He is disheveled and malodorous. During the evening shift he was placed in restraints and received emergency treatment medications due to his behavior. He is cooperative at this time but does not like to be questioned. He agrees to the admission and states "please make him voluntary." Patient is at moderate risk for decompensation. Based on his presentation will admit him for further assessment and treatment. Orders Orders Complete Blood Count With Diff (11/24/17 20:30) Comprehensive Metabolic Panel (11/24/17 20:30) Thyroid Stimulating Hormone (11/24/17 20:30) Psych Screen (11/24/17 20:30) Drug Screen, Random Urine (11/24/17 20:30) Alcohol (Ethanol) (11/24/17 20:30) Salicylates (Aspirin) (11/24/17 20:30) Tylenol (Acetaminophen) (11/24/17 20:30) Haloperidol Inj (Haldol Inj) (11/24/17 21:15) Diphenhydramine Inj (Benadryl Inj) (11/24/17 21:15) Lorazepam Inj (Ativan Inj) (11/24/17 21:15) Restraints Violent (11/24/17 21:07) Diet Regular Basic (11/25/17 Breakfast) Results Vital Signs Date Time Temp Pulse Resp B/P (MAP) Pulse Ox O2 Delivery O2 Flow Rate FiO2 11/25/17 03:09 98.8 66 18 117/60 (79) 96 Room Air 11/24/17 21:30 98.8 87 18 132/72 (92) 100 Room Air Laboratory Tests Test 11/24/17 21:25 White Blood Count 7.0 Red Blood Count 4.41 Hemoglobin 11.7 Hematocrit 35.9 Mean Corpuscular Volume 81.3 Mean Corpuscular Hemoglobin 26.4 Mean Corpuscular Hemoglobin Concent 32.4 Red Cell Distribution Width 12.5 Platelet Count 177 Mean Platelet Volume 10.0 Neutrophils (%) (Auto) 56.2 Lymphocytes (%) (Auto) 30.3 Monocytes (%) (Auto) 8.1 Eosinophils (%) (Auto) 4.7 Basophils (%) (Auto) 0.7 Neutrophils # (Auto) 3.9 Lymphocytes # (Auto) 2.1 Monocytes # (Auto) 0.6 Eosinophils # (Auto) 0.3 Basophils # (Auto) 0.0 CBC Comment DIFF FINAL Differential Comment Blood Urea Nitrogen 13 Creatinine 1.28 Random Glucose 91 Total Protein 7.7 Albumin 3.7 Calcium Level 8.8 Alkaline Phosphatase 81 Aspartate Amino Transf (AST/SGOT) 30 Alanine Aminotransferase (ALT/SGPT) 35 Total Bilirubin 1.2 Sodium Level 141 Potassium Level 3.3 Chloride Level 106 Carbon Dioxide Level 23.8 Anion Gap 11 Estimat Glomerular Filtration Rate 76 Thyroid Stimulating Hormone 3rd Gen 1.720 Salicylates Level LESS THAN 1.7 Acetaminophen Level LESS THAN 2.0 Ethyl Alcohol Level LESS THAN 3 Diagnosis Primary Impression: Paranoid schizophrenia Additional Impression: Cocaine abuse Admitting Information Admitting Physician Requests: Admit Condition: Stable Problem Qualifiers Cristina Clark Nov 25, 2017 10:14
[2017-11-25] MEDS ORDERED: ALUMINUM/MAGNESIUM/SIMETH 30 ML CUP PO PRN (10:45)
[2017-11-25] MEDS ORDERED: ACETAMINOPHEN 325 MG TAB PO PRN (10:45)
[2017-11-25] MEDS ORDERED: MAGNESIUM HYDROXIDE SUSP 30 ML CUP PO PRN (10:45)
[2017-11-25] MEDS: NICOTINE 21 MG/24 HR PATCH T-DERMAL SCH (11:00)
[2017-11-25 12:48] VITALS: BP 115/66; PULSE 85; RESP 18; TEMP 98.4; O2SAT 99
[2017-11-25] MEDS ORDERED: HALOPERIDOL 5 MG TAB PO SCH (21:00)
[2017-11-25] MEDS: BENZTROPINE MESYLATE 1 MG TAB PO SCH (21:00)
[2017-11-25] MEDS: REMOVE OLD PATCH T-DERMAL SCH (21:00)
[2017-11-26 06:30] VITALS: BP 149/63; PULSE 68; RESP 19; TEMP 98.1
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
[2017-11-26] MEDS: NICOTINE 21 MG/24 HR PATCH T-DERMAL SCH (09:00)
[2017-11-26] MEDS: BENZTROPINE MESYLATE 1 MG TAB PO SCH (09:15)
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
[2017-11-26] MEDS: REMOVE OLD PATCH T-DERMAL SCH (21:00)
[2017-11-27 06:05] VITALS: BP 122/74; PULSE 84; RESP 18; TEMP 97.2
[2017-11-27] MEDS: NICOTINE 21 MG/24 HR PATCH T-DERMAL SCH (08:49)
--- NOTE | 2017-11-27 09:07 | HHI.PYPN ---
Subjective Chief Complaint: Psychosis Remarks Patient seen and examined with nurse. Chart reviewed. Case discussed with nursing staff. Patient remained in seclusion late into the evening yesterday because of persistent agitation when efforts were made to discontinue seclusion. Case discussed in treatment team. I find the patient in the general population. He is with a 1:1. I have emphasized to nurse that patient is to remain in short vo away from other patients as I had ordered as a consequence of his unpredictability with respect to risk for violence. On my exam, patient is threatening and menacing. He tries repeatedly to stand over this provider in a threatening manner and has to be redirected repeatedly by staff. He appears internally stimulated. He is perseverative on discharge. He is quite paranoid. He is disheveled and his room is in disarray. He exhibits odd stereotypic or perhaps ritualistic behaviors, for example putting his index fingers from each hand in front of his face in an 'X' pattern and also wiping a single index finger across his eyes. Unclear if there is some purpose in these behaviors. No physical complaints. I leave patient with his 1 :1 in short vo. Patient has refused to provide numbers for [facility], and number for niece is still ringing busy. I called over to [facility] where patient receives services to see if they had other contact info. They provide the following: Mother Lexis Angulo [phone]. I called this number and it just rings. No VM. Other relative Ayala Rubio [phone]. This number rings and then I get a message indicating that VM has not been set up. Review of Systems ROS Limitations: Uncooperative, Psychotic, Poor Historian Except as stated in HPI: all other systems reviewed are Neg Mental Status Examination Appearance: Disheveled Consciousness: Alert Orientation: Person (At least) Motor Activity: Normal gait, Other (No abnormal motor movements noted) Speech: Other (Terse, hostile) Language: [place] Fund of Knowledge: Adequate Attention and Concentration: Easily Distracted Memory: Impaired (Possibly some degree of confabulation) Mood: Angry, Oppositional, Irritable, Other (Dysphoric) Affect: Other (Remains restricted) Thought Process & Associations: Circumstantial Thought Content: Preoccupations Hallucination Type: Other (Remains internally stimulated) Delusion Type: Paranoid Suicidal Ideation: No (Unreliable to contract for safety) Homicidal Ideation: No (Unreliable to contract for safety) Insight: Poor Judgment: Poor Results Labs Labs reviewed. Patient has refused labs and EKG Vitals/IOs Vital Signs Date Time Temp Pulse Resp B/P (MAP) Pulse Ox O2 Delivery O2 Flow Rate FiO2 11/27/17 06:05 97.2 84 18 122/74 (90) 11/25/17 12:48 99 11/25/17 03:09 Room Air Assessment & Plan Problem List: (1) Other psychotic disorder not due to a substance or known physiological condition ICD Codes: F28 - Other psychotic disorder not due to a substance or known physiological condition (2) Cocaine abuse ICD Codes: F14.10 - Cocaine abuse, uncomplicated Status: Acute Assessment & Plan Ongoing decompensated psychosis. Patient remains at high risk for aggressive behavior secondary to suspected impaired reality testing. Continue one-to-one for safety and continue to monitor in the short vo. Psychotropic medications are on hold for lack of consent. Continue other medications and care as ordered. Justification for Cont. Inpt. Impairment in reality construction. Impairment in safety. High risk for decompensation in less restrictive environment. Discharge Planning Pending psychiatric stabilization. Request HC Surrog/Guard Advoc?: Yes Braxton Isaacs MD Nov 27, 2017 09:07
[2017-11-27] MEDS: REMOVE OLD PATCH T-DERMAL SCH (20:20)
[2017-11-27] MEDS ORDERED: HALOPERIDOL LACTATE 5 MG/ML AMP ONE (22:18)
[2017-11-27] MEDS ORDERED: diphenhydrAMINE HCL 50 MG/ML VIAL ONE (22:18)
[2017-11-27] MEDS ORDERED: LORazepam 2 MG/ML VIAL ONE (22:19)
[2017-11-27] MEDS ORDERED: LORazepam 2 MG/ML VIAL IM ONE (22:30)
[2017-11-27] MEDS ORDERED: diphenhydrAMINE HCL 50 MG/ML VIAL IM ONE (22:30)
[2017-11-27] MEDS ORDERED: HALOPERIDOL LACTATE 5 MG/ML AMP IM ONE (22:30)
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
[2017-11-28] MEDS: NICOTINE 21 MG/24 HR PATCH T-DERMAL SCH (09:00)
[2017-11-28] MEDS ORDERED: diphenhydrAMINE HCL 50 MG/ML VIAL ONE (17:41)
[2017-11-28] MEDS ORDERED: LORazepam 2 MG/ML VIAL ONE (17:41)
[2017-11-28] MEDS ORDERED: HALOPERIDOL LACTATE 5 MG/ML AMP ONE (17:42)
[2017-11-28] MEDS ORDERED: HALOPERIDOL LACTATE 5 MG/ML AMP IM ONE (18:00)
[2017-11-28] MEDS ORDERED: diphenhydrAMINE HCL 50 MG/ML VIAL IM ONE (18:00)
[2017-11-28] MEDS ORDERED: LORazepam 2 MG/ML VIAL IM ONE (18:00)
[2017-11-28] MEDS: REMOVE OLD PATCH T-DERMAL SCH (20:00)
[2017-11-29] MEDS: NICOTINE 21 MG/24 HR PATCH T-DERMAL SCH (07:58)
--- NOTE | 2017-11-29 08:54 | HHI.PYPN ---
Subjective Chief Complaint: Psychosis Remarks Patient seen and examined with nurse. Chart reviewed. Case discussed with nursing staff who reports patient had an episode of agitation yesterday afternoon for which he required Haldol, Ativan and Benadryl ETO. On my examination today prior to court, the patient remains negativistic and somewhat oppositional. He remains fairly irritable. During the court hearing itself, the patient was heard threatening the traffic law attorney as he was making his remarks. He remains extremely paranoid. He is on a 1:1. No physical complaints. Review of Systems ROS Limitations: Uncooperative, Psychotic, Poor Historian Except as stated in HPI: all other systems reviewed are Neg Mental Status Examination Appearance: Disheveled Consciousness: Alert Orientation: Person (at least) Motor Activity: Other (No abnormal motor movements noted) Speech: Other (Angry) Language: [place] Fund of Knowledge: Adequate Attention and Concentration: Easily Distracted Memory: Impaired (Psychosis interferes) Mood: Irritable, Other (Dysphoric) Affect: Other (Remains restricted) Thought Process & Associations: Other (Perseverative) Thought Content: Preoccupations, Delusional Hallucination Type: Other (Internally stimulated) Delusion Type: Paranoid Suicidal Ideation: No (Remains unreliable to contract for safety) Homicidal Ideation: No (Remains unreliable to contract for safety) Insight: Poor Judgment: Poor Results Labs Labs reviewed Vitals/IOs Vital Signs Date Time Temp Pulse Resp B/P (MAP) Pulse Ox O2 Delivery O2 Flow Rate FiO2 11/27/17 06:05 97.2 84 18 122/74 (90) 11/25/17 12:48 99 Assessment & Plan Problem List: (1) Other psychotic disorder not due to a substance or known physiological condition ICD Codes: F28 - Other psychotic disorder not due to a substance or known physiological condition (2) Cocaine abuse ICD Codes: F14.10 - Cocaine abuse, uncomplicated Status: Acute Assessment & Plan Patient's case was presented to the [place] act court, and the patient was retained on the unit by the stock tracer with guardian advocate from [facility]. I have spoken with [facility] guardian this afternoon and obtained consent for psychotropics. Initiate Haldol 5mg PO BID with IM backup with plans to titrate to effect. Also initiate scheduled Cogentin with p.r.n. Cogentin as needed for EPS. Ativan PO or IM as needed for anxiety. Obtain updated set of basic laboratories in the morning. Continue one-to-one until psychotic symptoms are under better control. Continue to monitor on the high acuity unit. Continue other medications and care as ordered. Justification for Cont. Inpt. Medication changes. Impairment in safety. High risk for decompensation in less restrictive environment. Discharge Planning Pending psychiatric stabilization Request HC Surrog/Guard Advoc?: Yes Braxton Isaacs MD Nov 29, 2017 08:54
[2017-11-29] MEDS ORDERED: HALOPERIDOL LACTATE 5 MG/ML AMP IM PRN (15:15)
[2017-11-29] MEDS ORDERED: BENZTROPINE MESYLATE 1 MG TAB PO PRN (15:15)
[2017-11-29] MEDS ORDERED: LORazepam 2 MG/ML VIAL IM PRN (15:15)
[2017-11-29] MEDS ORDERED: BENZTROPINE MESYLATE 2 MG/2 ML VIAL IM PRN (15:15)
[2017-11-29] MEDS: BENZTROPINE MESYLATE 1 MG TAB PO SCH (20:17)
[2017-11-29] MEDS: HALOPERIDOL 5 MG TAB PO SCH (20:18)
[2017-11-29] MEDS: REMOVE OLD PATCH T-DERMAL SCH (20:18)
[2017-11-30 05:38] VITALS: BP 96/72; PULSE 96; RESP 18; TEMP 98.1; O2SAT 98
[2017-11-30] MEDS: BENZTROPINE MESYLATE 1 MG TAB PO SCH ×2 (08:36→20:09)
[2017-11-30] MEDS: HALOPERIDOL 5 MG TAB PO SCH ×2 (08:37→20:10)
[2017-11-30] MEDS: NICOTINE 21 MG/24 HR PATCH T-DERMAL SCH (08:44)
[2017-11-30 09:14] LABS: AUTOMATED NEUTROPHIL # 3.4 TH/MM3 (1.8-7.7); BASOPHIL % 0.4 % (0.0-2.0); EOSINOPHIL # 0.2 TH/MM3 (0-0.4); EOSINOPHIL % 3.8 % (0.0-4.0); HEMATOCRIT 38.7 % (39.0-51.0); HEMOGLOBIN 12.3 GM/DL (13.0-17.0); LYMPH % 30.9 % (9.0-44.0); LYMPHOCYTE # 1.9 TH/MM3 (1.0-4.8); MEAN CELL VOLUME 83.4 FL (80.0-100.0); MEAN CORPUSCULAR HEMOGLOBIN 26.5 PG (27.0-34.0); MEAN CORPUSCULAR HGB CONC 31.8 % (32.0-36.0); MEAN PLATELET VOLUME 9.6 FL (7.0-11.0); MONOCYTE # 0.5 TH/MM3 (0-0.9); NEUT % 55.9 % (16.0-70.0); PLATELET COUNT 177 TH/MM3 (150-450); RED BLOOD COUNT 4.65 MIL/MM3 (4.50-5.90); RED CELL DISTRIBUTION WIDTH 12.7 % (11.6-17.2); WHITE BLOOD COUNT 6.1 TH/MM3 (4.0-11.0)
[2017-11-30 09:39] LABS: ALBUMIN 3.5 GM/DL (3.4-5.0); AST (GOT) 45 U/L (15-37); BICARBONATE 30.3 MEQ/L (21.0-32.0); BLOOD UREA NITROGEN 16 MG/DL (7-18); CALCIUM 9.2 MG/DL (8.5-10.1); CHLORIDE 101 MEQ/L (98-107); CREATININE 1.02 MG/DL (0.60-1.30); GLOMERULAR FILTRATION RATE 99 ML/MIN (>89); GLUCOSE,RANDOM 97 MG/DL (74-106); SODIUM (NA) 139 MEQ/L (136-145)
[2017-11-30 09:42] LABS: ALKALINE PHOSPHATASE 75 U/L (45-117); ALT (GPT) 38 U/L (12-78); TOTAL BILIRUBIN ADULT 0.9 MG/DL (0.2-1.0); TOTAL PROTEIN 7.4 GM/DL (6.4-8.2)
--- NOTE | 2017-11-30 10:02 | HHI.PYPN ---
Subjective Chief Complaint: Psychosis Remarks Patient seen and examined. Chart reviewed. Case discussed with nursing staff. Patient reportedly paranoid, labile and threatening overnight. He also was masturbating while talking with his sitter. Nurse asks to keep 1:1 today at least given ongoing issues with aggression/agitation. Case discussed in treatment team. On my exam, patient remains irritable and paranoid. He is minimally cooperative with interview. Eye contact is poor. Hygiene is marginal. Yells at the nurse before interview because she brought him apple juice in a cup and not in the juice container. Denies AVH. Denies side effects from medications. No acute physical complaints. Review of Systems ROS Limitations: Uncooperative, Psychotic, Poor Historian Except as stated in HPI: all other systems reviewed are Neg Mental Status Examination Appearance: Disheveled Consciousness: Alert Orientation: Person (at least) Motor Activity: Other (No hand tremor, no dystonia, no dyskinesia noted. No other motor abnormalities noted.) Speech: Other (Angry) Language: [place] Fund of Knowledge: Adequate Attention and Concentration: Easily Distracted Memory: Impaired (Psychosis interferes) Mood: Oppositional, Irritable, Other (Dysphoric) Affect: Other (Restricted) Thought Process & Associations: Other (Perseverative) Thought Content: Preoccupations, Delusional Hallucination Type: Other (Internally preoccupied) Delusion Type: Paranoid Suicidal Ideation: No (Unreliable to contract for safety) Homicidal Ideation: No (Unreliable to contract for safety) Insight: Poor Judgment: Poor Results Labs Test 11/30/17 08:49 White Blood Count 6.1 TH/MM3 Red Blood Count 4.65 MIL/MM3 Hemoglobin 12.3 GM/DL Hematocrit 38.7 % Mean Corpuscular Volume 83.4 FL Mean Corpuscular Hemoglobin 26.5 PG Mean Corpuscular Hemoglobin Concent 31.8 % Red Cell Distribution Width 12.7 % Platelet Count 177 TH/MM3 Mean Platelet Volume 9.6 FL Neutrophils (%) (Auto) 55.9 % Lymphocytes (%) (Auto) 30.9 % Monocytes (%) (Auto) 9.0 % Eosinophils (%) (Auto) 3.8 % Basophils (%) (Auto) 0.4 % Neutrophils # (Auto) 3.4 TH/MM3 Lymphocytes # (Auto) 1.9 TH/MM3 Monocytes # (Auto) 0.5 TH/MM3 Eosinophils # (Auto) 0.2 TH/MM3 Basophils # (Auto) 0.0 TH/MM3 CBC Comment DIFF FINAL Differential Comment Blood Urea Nitrogen 16 MG/DL Creatinine 1.02 MG/DL Random Glucose 97 MG/DL Total Protein 7.4 GM/DL Albumin 3.5 GM/DL Calcium Level 9.2 MG/DL Alkaline Phosphatase 75 U/L Aspartate Amino Transf (AST/SGOT) 45 U/L Alanine Aminotransferase (ALT/SGPT) 38 U/L Total Bilirubin 0.9 MG/DL Sodium Level 139 MEQ/L Potassium Level 4.0 MEQ/L Chloride Level 101 MEQ/L Carbon Dioxide Level 30.3 MEQ/L Anion Gap 8 MEQ/L Estimat Glomerular Filtration Rate 99 ML/MIN CBC reveals interval improvement in anemia. CMP reveals mildly elevated AST, likely of no clinical significance. Vitals/IOs Vital Signs Date Time Temp Pulse Resp B/P (MAP) Pulse Ox O2 Delivery O2 Flow Rate FiO2 11/30/17 05:38 98.1 96 18 96/72 (80) 98 Assessment & Plan Problem List: (1) Other psychotic disorder not due to a substance or known physiological condition ICD Codes: F28 - Other psychotic disorder not due to a substance or known physiological condition (2) Cocaine abuse ICD Codes: F14.10 - Cocaine abuse, uncomplicated Status: Acute Assessment & Plan Titrate PO Haldol with IM backup over the weekend to target psychosis. Interval target dose of Haldol is 10mg BID. Continue Cogentin as ordered. Plan for Haldol Dec so long as this agent seems efficacious. I will continue the sitter an additional day with plan to reassess tomorrow. Continue to monitor on high acuity unit. Continue other medications and care as ordered. Justification for Cont. Inpt. Medication changes. Impairment in reality construction. Impairment in safety and social function. High risk for decompensation in less restrictive environment. Discharge Planning Pending psychiatric stabilization Request HC Surrog/Guard Advoc?: Yes Braxton Isaacs MD Nov 30, 2017 10:02
[2017-11-30] MEDS ORDERED: HALOPERIDOL LACTATE 5 MG/ML AMP IM PRN (11:45)
[2017-11-30] MEDS: REMOVE OLD PATCH T-DERMAL SCH (20:17)
[2017-12-01 06:32] VITALS: BP 140/76; PULSE 115; RESP 18; TEMP 97.8; O2SAT 98
[2017-12-01] MEDS: NICOTINE 21 MG/24 HR PATCH T-DERMAL SCH (09:00)
[2017-12-01] MEDS: HALOPERIDOL 5 MG TAB PO SCH ×2 (09:17→22:09)
[2017-12-01] MEDS: BENZTROPINE MESYLATE 1 MG TAB PO SCH ×2 (09:17→22:09)
--- NOTE | 2017-12-01 12:33 | HHI.PYPN ---
Subjective Chief Complaint: Psychosis Remarks Pt seen and discussed with staff. He has been compliant with medications. He remains delusional and paranoid but has not been aggressive today and has not required ETO today. No SI/HI Review of Systems Psychiatric: COMPLAINS OF: Delusions Mental Status Examination Appearance: Disheveled Consciousness: Alert Orientation: Person (at least) Motor Activity: Other (No hand tremor, no dystonia, no dyskinesia noted. No other motor abnormalities noted.) Speech: Other (Angry) Language: [place] Fund of Knowledge: Adequate Attention and Concentration: Easily Distracted Memory: Impaired (Psychosis interferes) Mood: Oppositional, Irritable, Other (Dysphoric) Affect: Other (Restricted) Thought Process & Associations: Other (Perseverative) Thought Content: Preoccupations, Delusional Hallucination Type: Other (Internally preoccupied) Delusion Type: Paranoid Suicidal Ideation: No (Unreliable to contract for safety) Homicidal Ideation: No (Unreliable to contract for safety) Insight: Poor Judgment: Poor Results Vitals/IOs Vital Signs Date Time Temp Pulse Resp B/P (MAP) Pulse Ox O2 Delivery O2 Flow Rate FiO2 12/01/17 06:32 97.8 115 18 140/76 (97) 98 Assessment & Plan Problem List: (1) Other psychotic disorder not due to a substance or known physiological condition ICD Codes: F28 - Other psychotic disorder not due to a substance or known physiological condition (2) Cocaine abuse ICD Codes: F14.10 - Cocaine abuse, uncomplicated Status: Acute Assessment & Plan Continue current tx plan. Estimated LOS: days Justification for Cont. Inpt. impairments in reality testing. Request HC Surrog/Guard Advoc?: Yes Irina Moraes MD Dec 01, 2017 12:33
[2017-12-01 17:45] VITALS: BP 115/50; PULSE 67; RESP 18; TEMP 97.8; O2SAT 98
[2017-12-01] MEDS: REMOVE OLD PATCH T-DERMAL SCH (21:00)
[2017-12-01] MEDS: LORazepam 1 MG TAB PO PRN (22:09)
[2017-12-02 06:45] VITALS: BP 99/55; PULSE 61; RESP 18; TEMP 97.5; O2SAT 95
[2017-12-02] MEDS: NICOTINE 21 MG/24 HR PATCH T-DERMAL SCH (09:00)
[2017-12-02] MEDS: BENZTROPINE MESYLATE 1 MG TAB PO SCH ×2 (10:30→21:14)
[2017-12-02] MEDS: HALOPERIDOL 5 MG TAB PO SCH ×2 (10:31→21:13)
--- NOTE | 2017-12-02 14:58 | HHI.PYPN ---
Subjective Chief Complaint: Psychosis Remarks Pt seen and discussed with staff. He remains disorganized and urinated on the floor in his room this morning. "What you want me to be backed up into my kidneys?!!!" He is compliant with medications. Self care and hygiene are poor. Mental Status Examination Appearance: Disheveled Consciousness: Alert Orientation: Person (at least) Motor Activity: Other (No hand tremor, no dystonia, no dyskinesia noted. No other motor abnormalities noted.) Speech: Other (Angry) Language: [place] Fund of Knowledge: Adequate Attention and Concentration: Easily Distracted Memory: Impaired (Psychosis interferes), Recent (intact) Mood: Oppositional, Irritable, Other (Dysphoric) Affect: Other (Restricted) Thought Process & Associations: Disorganized Thought Content: Preoccupations, Delusional Hallucination Type: Other (Internally preoccupied) Delusion Type: Paranoid Suicidal Ideation: No (Unreliable to contract for safety) Homicidal Ideation: No (Unreliable to contract for safety) Insight: Poor Judgment: Poor Results Vitals/IOs Vital Signs Date Time Temp Pulse Resp B/P (MAP) Pulse Ox O2 Delivery O2 Flow Rate FiO2 12/02/17 06:45 97.5 61 18 99/55 (70) 95 Assessment & Plan Problem List: (1) Other psychotic disorder not due to a substance or known physiological condition ICD Codes: F28 - Other psychotic disorder not due to a substance or known physiological condition (2) Cocaine abuse ICD Codes: F14.10 - Cocaine abuse, uncomplicated Status: Acute Assessment & Plan continue current tx plan. Estimated LOS: days Justification for Cont. Inpt. impairments in reality testing Request HC Surrog/Guard Advoc?: Yes Irina Moraes MD Dec 02, 2017 14:58
[2017-12-02 17:48] VITALS: BP 113/49; PULSE 83; RESP 18; TEMP 98.7; O2SAT 96
[2017-12-02] MEDS: REMOVE OLD PATCH T-DERMAL SCH (20:43)
[2017-12-02] MEDS: LORazepam 1 MG TAB PO PRN (21:14)
[2017-12-02] MEDS ORDERED: diphenhydrAMINE HCL 50 MG/ML VIAL IM SCH (21:23)
[2017-12-02] MEDS ORDERED: OLANZapine IM 10 MG VIAL IM SCH (21:23)
[2017-12-02] MEDS ORDERED: diphenhydrAMINE HCL 50 MG/ML VIAL ONE (21:26)
[2017-12-02] MEDS ORDERED: OLANZapine IM 10 MG VIAL IM ONE (21:26)
[2017-12-03 06:40] VITALS: BP 92/50; PULSE 58; RESP 17; TEMP 98; O2SAT 100
[2017-12-03] MEDS: NICOTINE 21 MG/24 HR PATCH T-DERMAL SCH (09:00)
[2017-12-03] MEDS: HALOPERIDOL 5 MG TAB PO SCH (09:20)
[2017-12-03] MEDS: BENZTROPINE MESYLATE 1 MG TAB PO SCH ×2 (09:20→20:31)
--- NOTE | 2017-12-03 11:29 | HHI.PYPN ---
Subjective Chief Complaint: Psychosis Remarks Patient seen and examined with nurse and counselor. Chart reviewed. Case discussed with nursing staff. Patient remains on one-to-one because of intermittent agitation. He required Zyprexa IM overnight ETO for this reason. On my examination today, the patient seems a little bit less irritable and more conversant. He denies any SI or HI but seems unreliable to contract for safety. He denies any audiovisual hallucinations but does appear a little internally preoccupied. He remains fairly paranoid. No side effects from medications. In particular, no evidence of akathisia. No acute physical complaints. I discuss possible initiation of Haldol decanoate, and the patient says that he recently received such an injection from [facility]. However , I called over to [facility], and the last time the patient had a Haldol decanoate injection there was in June of this year. I have obtained consent for Haldol Decanoate from patient's guardian advocate from [facility]. Review of Systems ROS Limitations: Psychotic, Poor Historian Except as stated in HPI: all other systems reviewed are Neg Mental Status Examination Appearance: Disheveled Consciousness: Alert Orientation: Person (at least) Motor Activity: Other (No motor abnormalities noted.) Speech: Other (Angry) Language: [place] Fund of Knowledge: Adequate Attention and Concentration: Easily Distracted Memory: Impaired (Psychosis interferes) Mood: Irritable (A little less so today), Other (Dysphoric) Affect: Other (Restricted) Thought Process & Associations: Other (Somewhat more organized today) Thought Content: Delusional Hallucination Type: Other (Remains internally stimulated) Delusion Type: Paranoid Suicidal Ideation: No (Unreliable to contract for safety) Homicidal Ideation: No (Unreliable to contract for safety) Insight: Poor Judgment: Poor Results Labs Labs reviewed Vitals/IOs Vital Signs Date Time Temp Pulse Resp B/P (MAP) Pulse Ox O2 Delivery O2 Flow Rate FiO2 12/03/17 06:40 98.0 58 17 92/50 (64) 100 Assessment & Plan Problem List: (1) Other psychotic disorder not due to a substance or known physiological condition ICD Codes: F28 - Other psychotic disorder not due to a substance or known physiological condition (2) Cocaine abuse ICD Codes: F14.10 - Cocaine abuse, uncomplicated Status: Acute Assessment & Plan Titrate oral Haldol to 10 mg 3 times daily to target residual psychotic symptoms. I have also ordered IM backup should the patient refuse p.o. Haldol. Patient does seem to be slowly improving with the Haldol, and so I will go ahead and start Haldol Decanoate 100mg IM today with plans to administer the balance in 3-7 days to bring the total decanoate dose to 10-15 times the total oral daily dose. If patient passes an uneventful night, we might consider discontinuing 1:1 tomorrow, at least for part of the day. Continue other medications and care as ordered. Justification for Cont. Inpt. Impairment in reality construction. Medication changes. High risk for decompensation in less restrictive environment. Discharge Planning Possible placement Request HC Surrog/Guard Advoc?: Yes Braxton Isaacs MD Dec 03, 2017 11:29
[2017-12-03] MEDS ORDERED: HALOPERIDOL DECANOATE 50 MG/ML VIAL IM SCH (12:30)
[2017-12-03] MEDS: HALOPERIDOL 10 MG TAB PO SCH ×2 (15:00→20:32)
[2017-12-03] MEDS: HALOPERIDOL LACTATE 5 MG/ML AMP IM PRN (16:00)
[2017-12-03] MEDS: REMOVE OLD PATCH T-DERMAL SCH (20:38)
[2017-12-04] MEDS: HALOPERIDOL 10 MG TAB PO SCH ×3 (08:46→21:00)
[2017-12-04] MEDS: BENZTROPINE MESYLATE 1 MG TAB PO SCH ×2 (08:46→21:00)
[2017-12-04] MEDS: NICOTINE 21 MG/24 HR PATCH T-DERMAL SCH (09:00)
--- NOTE | 2017-12-04 13:00 | HHI.PYPN ---
Subjective Chief Complaint: Psychosis Remarks Patient seen and examined with nurse. Chart reviewed. Case discussed with nursing staff. Patient remains on one-to-one but had no outbursts overnight. On my examination today, the patient is calm and considerably less irritable. He denies any audiovisual hallucinations. No SI or HI. He is resistant to taking more than 20 mg a day of Haldol, saying that he has cardiac side effects , although he does not describe any chest pain, palpitations, etc. now. No reported side effects from medications in fact. No physical complaints. I will obtain an EKG, patient had previously refused but says that he will comply now. Declines CORRECTION placement. Says that he will return with [id number] but has no way of contacting [id number]. Review of Systems Except as stated in HPI: all other systems reviewed are Neg Mental Status Examination Appearance: Disheveled Consciousness: Alert Orientation: Person (at least) Motor Activity: Other (No abnormal motor movements noted) Speech: Other (Angry) Language: [place] Fund of Knowledge: Adequate Attention and Concentration: Easily Distracted Memory: Unremarkable Mood: Other (Fairly calm today) Affect: Anxious (Mild) Thought Process & Associations: Intact Thought Content: Other (More appropriate today) Hallucination Type: None Delusion Type: Other (Some mild guardedness but definitely less paranoid with Haldol) Suicidal Ideation: No Homicidal Ideation: No Insight: Poor Judgment: Poor Results Labs Labs reviewed. EKG reveals sinus rhythm with QTC of 389 ms, not prolonged. Vitals/IOs Vital Signs Date Time Temp Pulse Resp B/P (MAP) Pulse Ox O2 Delivery O2 Flow Rate FiO2 12/03/17 06:40 98.0 58 17 92/50 (64) 100 Assessment & Plan Problem List: (1) Other psychotic disorder not due to a substance or known physiological condition ICD Codes: F28 - Other psychotic disorder not due to a substance or known physiological condition (2) Cocaine abuse ICD Codes: F14.10 - Cocaine abuse, uncomplicated Status: Acute Assessment & Plan No evidence of prolonged QTc on EKG. Patient is definitely improving with the Haldol. He accepted Haldol dec yesterday, and we will plan to administer balance of the dose towards the end of the week. Continue oral Haldol supplementation as ordered. Discontinue one-to-one as patient appears to be in behavioral control and psychosis is improving. Continue to monitor on the high acuity unit. Continue other medications and care as ordered. Justification for Cont. Inpt. Anticipated medication changes. Risk for decompensation in less restrictive setting. Discharge Planning Patient would likely benefit from placement in structured living environment but is refusing. Counselor to work on disposition plan now that patient is improving. Request HC Surrog/Guard Advoc?: Yes Braxton Isaacs MD Dec 04, 2017 13:00
[2017-12-04] MEDS: HALOPERIDOL LACTATE 5 MG/ML AMP IM PRN (20:42)
[2017-12-04] MEDS: REMOVE OLD PATCH T-DERMAL SCH (21:00)
[2017-12-05] MEDS: HALOPERIDOL 10 MG TAB PO SCH ×3 (08:24→20:54)
[2017-12-05] MEDS: BENZTROPINE MESYLATE 1 MG TAB PO SCH ×2 (08:24→20:54)
[2017-12-05] MEDS: NICOTINE 21 MG/24 HR PATCH T-DERMAL SCH (09:00)
--- NOTE | 2017-12-05 09:35 | EKG ---
Date Performed: 12/04/2017 Time Performed: 13:25:56 PTAGE: 37 years EKG: Sinus rhythm MARKED LEFT AXIS DEVIATION MODERATE VOLTAGE CRITERIA FOR LVH, CONSIDER NORMAL VARIANT ABNORMAL ECG PREVIOUS TRACING : 05/29/2001 12.10 DOCTOR: Omar Lovett Interpretating Date/Time 12/05/2017 09:33:01
--- NOTE | 2017-12-05 10:06 | HHI.PYPN ---
Subjective Chief Complaint: Psychosis Remarks Patient seen and examined with nurse. Chart reviewed. Case discussed with nursing staff. No behavioral issues noted per nursing. Case discussed with counselor. Patient continues to refuse CORRECTION placement. On my examination today , the patient presents as somewhat disheveled and malodorous. He denies any SI or HI. Denies any AVH. He does remain a little bit guarded. No side effects from medications. No physical complaints. He continues to decline CORRECTION placement when I suggest it to him. Review of Systems Except as stated in HPI: all other systems reviewed are Neg Mental Status Examination Appearance: Disheveled Consciousness: Alert Orientation: Person, Place Motor Activity: Other (No motor abnormalities noted) Speech: Unremarkable Language: Adequate Fund of Knowledge: Adequate Attention and Concentration: Adequate Memory: Unremarkable Mood: Other (Mildly dysphoric) Affect: Other (Restricted) Thought Process & Associations: Intact Thought Content: Appropriate Hallucination Type: None Delusion Type: Other (Remains somewhat guarded) Suicidal Ideation: No Homicidal Ideation: No Insight: Poor Judgment: Poor Results Labs Labs reviewed. Vitals/IOs Vital Signs Date Time Temp Pulse Resp B/P (MAP) Pulse Ox O2 Delivery O2 Flow Rate FiO2 12/03/17 06:40 98.0 58 17 92/50 (64) 100 Assessment & Plan Problem List: (1) Other psychotic disorder not due to a substance or known physiological condition ICD Codes: F28 - Other psychotic disorder not due to a substance or known physiological condition (2) Cocaine abuse ICD Codes: F14.10 - Cocaine abuse, uncomplicated Status: Acute Assessment & Plan Patient improving with current Haldol regimen but requires additional time with antipsychotic to allow for discharge. I will plan to administer booster dose of Haldol Decanoate tomorrow; I have gone ahead and ordered this. Possible discharge before the weekend as patient is refusing placement. Continue to monitor on the high acuity unit. Continue other medications and care as ordered. Justification for Cont. Inpt. Medication changes anticipated. Risk for decompensation in less restrictive environment. Discharge Planning Pending psychiatric stabilization Request HC Surrog/Guard Advoc?: Yes Braxton Isaacs MD Dec 05, 2017 10:06
[2017-12-05] MEDS: HALOPERIDOL LACTATE 5 MG/ML AMP IM PRN (20:49)
[2017-12-05] MEDS: REMOVE OLD PATCH T-DERMAL SCH (20:54)
[2017-12-06 05:57] VITALS: BP 144/81; PULSE 76; RESP 18; TEMP 98.1; O2SAT 100
[2017-12-06] MEDS: HALOPERIDOL 10 MG TAB PO SCH (08:21)
[2017-12-06] MEDS: BENZTROPINE MESYLATE 1 MG TAB PO SCH (08:21)
[2017-12-06] MEDS ORDERED: HALOPERIDOL DECANOATE 50 MG/ML VIAL IM SCH (09:00)
[2017-12-06] MEDS: NICOTINE 21 MG/24 HR PATCH T-DERMAL SCH (09:00)
[2017-12-06] MEDS ORDERED: HALO10TA PO (11:18)
[2017-12-06] MEDS ORDERED: HALO100P IM (11:18)
[2017-12-06] MEDS ORDERED: Benztropine PO (11:18)
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
== END 2017-12-06 12:15 | disposition home or self-care (01) | DRG 885 ==
LOC: NEPJ 20:24 → NEDA 11-25 10:41 → H270 11-25 12:05
PROVIDERS: ADMIT Psychiatry & Neurology Psychiatry; ATTEND Psychiatry & Neurology Psychiatry
DX: F20.0 Paranoid schizophrenia (principal); F14.10 Cocaine abuse, uncomplicated; D57.3 Sickle-cell trait; Z72.0 Tobacco use
CPT/HCPCS: 80053; 80307; 84443; 85025; 93005; 96372; J1200; J1630; J1631; J2060